=== PATIENT | male | born 1985 | race Two or more races ===

== ENCOUNTER → 2017-11-29 | Outpatient (CLI) | payer OTHER | END | disposition home or self-care (01) | LOC: LAB 11:25 | PROVIDERS: ATTEND Preventive Medicine Preventive Medicine/Occupational Environmental Medicine | DX: Z02.1 Encounter for pre-employment examination (principal) | CPT/HCPCS: 36415; 86706; 86735; 86762; 86765 ==

== ENCOUNTER 2018-04-21 00:51 | Emergency (ER) | payer OTHER ==
[~2018-04-21] VITALS: Ht 182.9 cm; Wt 113.4 kg
[2018-04-21] MEDS ORDERED: ONDANSETRON HCL 4 MG/2 ML VIAL IV ONE ×2 (02:00→04:00)
[2018-04-21] MEDS ORDERED: MORPHINE SULFATE 4 MG/ML SYR/VIAL IV ONE ×2 (02:00→04:00)
[2018-04-21 03:02] VITALS: BP 121/74
[2018-04-21 03:25] LABS: Urine Bacteria NONE SEEN /hpf (None Seen); Urine Blood Negative /uL (Negative); Urine Mucus FEW (None Seen); Urine Specific Gravity 1.022 (1.001-1.035); Urine WBC 2 /hpf (0 - 3)
[2018-04-21] MEDS ORDERED: ONDANSETRON HCL 4 MG/2 ML VIAL ONE (03:56)
[2018-04-21] MEDS ORDERED: MORPHINE SULFATE 4 MG/ML SYR/VIAL ONE (03:56)
== END 2018-04-21 04:30 | disposition home or self-care (01) ==
LOC: ER 00:52
DX: S33.5XXA Sprain of ligaments of lumbar spine, initial encounter (principal); M54.17 Radiculopathy, lumbosacral region; M47.897 Other spondylosis, lumbosacral region; Z88.2 Allergy status to sulfonamides; X58.XXXA Exposure to other specified factors, initial encounter; Y93.89 Activity, other specified; Y92.89 Other specified places as the place of occurrence of the external cause; Y99.8 Other external cause status
CPT/HCPCS: 72131; 81001; 96374; 96375; 96376; 99285; J2270; J2405

== ENCOUNTER 2018-04-26 12:26 | Inpatient (IN) | payer BC, OTHER ==
[2018-04-25 22:00] VITALS: BP 103/55
[~2018-04-26] VITALS: Ht 182.9 cm; Wt 119.8 kg
[2018-04-26] MEDS ORDERED: ONDANSETRON HCL 4 MG/2 ML VIAL IV ONE (12:30)
[2018-04-26] MEDS ORDERED: HYDROmorphone HCL 2 MG/ML VL IV ONE (12:30)
[2018-04-26] MEDS ORDERED: traMADol HCL 50 MG TAB PO ONE (14:15)
[2018-04-26] MEDS ORDERED: CARISOPRODOL 350 MG TAB PO ONE (14:15)
[2018-04-26] MEDS ORDERED: DEXAMETHASONE SOD PHOS 4 MG/1ML SDV INJ IV ONE (15:30)
[2018-04-26 16:10] LABS: Basophils # (auto) 0 uL; Basophils % (auto) 0.5 % (0.0-2.0); Eosinophils # (auto) 0.1 uL; Eosinophils % (auto) 2.1 % (0.0-7.0); Hematocrit 48.7 % (41.0-53.0); Hemoglobin 16.6 g/dL (13.5-17.5); Lymphocytes # (auto) 2.1 uL; Lymphocytes % (auto) 54.5 % (10.0-50.0); Mean Corpuscular Hemoglobin 30.7 pg (28.0-32.0); Monocytes # (auto) 0.5 uL; Monocytes % (auto) 12.8 % (0.0-12.0); Neutrophils # (auto) 1.1 uL; Neutrophils % (auto) 30.1 % (37.0-80.0); Nucleated Red Blood Cells % 0.1 %; Platelet Count (auto) 216 10^3/uL (140-450); Red Cell Distribution Width 13.3 % (11.8-14.3); White Blood Cell 3.8 10^3/uL (4.4-10.8)
[2018-04-26 16:27] LABS: Albumin 4.2 g/dL (3.4-5.0); Calcium 9.4 mg/dL (8.5-10.1); Potassium 4.7 mmol/L (3.5-5.1)
[2018-04-26 16:29] LABS: Partial Thromboplastin Time 28.7 sec (23.78-33.04); Prothrombin Time 10.7 sec (9.27-12.13)
[2018-04-26 16:30] LABS: BUN/Creatinine Ratio 15.6; Bilirubin, Total 0.7 mg/dL (0.2-1.0); Total Protein 8.7 g/dL (6.4-8.2)
[2018-04-26] MEDS: CYCLOBENZAPRINE HCL 10 MG TAB PO PRN (16:50)
[2018-04-26] MEDS: HYDROcodone-ACET 5/325MG TAB PO PRN (16:50)
[2018-04-26] MEDS: KETOROLAC TROMETH 30 MG/ML 1ML VIAL IV SCH (17:58)
[2018-04-26] MEDS ORDERED: HYDR-4683 PO (20:05)
[2018-04-26] MEDS ORDERED: IBUP800T24 PO (20:05)
[2018-04-26] MEDS: DEXAMETHASONE 4 MG TAB PO SCH (21:47)
[2018-04-26 22:00] VITALS: BP 103/55
[2018-04-26] MEDS: HYDROmorphone HCL 2 MG/ML VL IV PRN (23:58)
[2018-04-27] MEDS: KETOROLAC TROMETH 30 MG/ML 1ML VIAL IV SCH ×4 (00:47→18:27)
[2018-04-27 01:49] LABS: Urine Bacteria NONE SEEN /hpf (None Seen); Urine Blood Negative /uL (Negative); Urine Mucus FEW (None Seen); Urine Specific Gravity 1.029 (1.001-1.035); Urine WBC 1 /hpf (0 - 3)
[2018-04-27] MEDS: HYDROmorphone HCL 2 MG/ML VL IV PRN ×4 (04:39→22:45)
[2018-04-27 05:20] VITALS: BP 119/77
[2018-04-27 08:00] VITALS: BP 112/60
[2018-04-27 09:00] VITALS: BP 112/60
[2018-04-27] MEDS: DEXAMETHASONE 4 MG TAB PO SCH ×2 (09:42→22:50)
[2018-04-27] MEDS: HYDROcodone-ACET 5/325MG TAB PO PRN ×2 (09:42→19:56)
[2018-04-27 13:00] VITALS: BP 118/69
[2018-04-27] MEDS: GABAPENTIN 300 MG CAP PO SCH ×2 (14:45→22:50)
[2018-04-27] MEDS: DOCUSATE SOD 100 MG CAP PO SCH ×2 (16:35→22:51)
[2018-04-27 17:00] VITALS: BP 130/71
[2018-04-27] MEDS: CYCLOBENZAPRINE HCL 10 MG TAB PO PRN (19:56)
[2018-04-27 22:00] VITALS: BP 124/53
[2018-04-28] MEDS: HYDROcodone-ACET 5/325MG TAB PO PRN ×3 (01:58→21:08)
[2018-04-28] MEDS: HYDROmorphone HCL 2 MG/ML VL IV PRN ×5 (03:57→22:50)
[2018-04-28] MEDS: GABAPENTIN 300 MG CAP PO SCH (05:46)
[2018-04-28 05:51] VITALS: BP 101/49
[2018-04-28 08:24] VITALS: BP 104/50
[2018-04-28] MEDS: DEXAMETHASONE 4 MG TAB PO SCH ×2 (10:56→21:07)
[2018-04-28] MEDS: DOCUSATE SOD 100 MG CAP PO SCH ×2 (10:56→21:07)
[2018-04-28 11:41] VITALS: BP 115/59
[2018-04-28] MEDS ORDERED: LIDOCAINE 5% TOPICAL PATCH TOP ONE (14:15)
[2018-04-28 16:09] VITALS: BP 121/72
[2018-04-28] MEDS ORDERED: NEOMYCIN-BACITRACIN-POLYM 15GM TOP OINT TOP ONE (16:57)
[2018-04-28] MEDS ORDERED: BUPIVACAINE 0.25% INJ 50ML VIAL ONE (17:23)
[2018-04-28] MEDS ORDERED: TRIAMCINOLONE 40MG/ML 1ML VIAL ONE ×2 (18:58→19:47)
[2018-04-28] MEDS ORDERED: fentaNYL CITRATE 100 MCG/2 ML VL ONE (19:45)
[2018-04-28] MEDS ORDERED: MIDAZOLAM HCL 1MG/1ML-2 ML VIAL ONE (19:46)
[2018-04-28] MEDS ORDERED: HYDROmorphone HCL 2 MG/ML VL ONE (20:11)
[2018-04-28] MEDS ORDERED: ONDANSETRON HCL 4 MG/2 ML VIAL IV ONE (20:15)
[2018-04-28] MEDS ORDERED: hydrALAZINE HCL 20 MG/ML VL IV PRN (20:15)
[2018-04-28] MEDS ORDERED: HYDROmorphone HCL 2 MG/ML VL IV PRN (20:15)
[2018-04-28] MEDS ORDERED: ePHEDrine SULFATE 50 MG/ML AMP IV PRN (20:15)
[2018-04-28 21:22] VITALS: BP 137/83
[2018-04-28] MEDS: CYCLOBENZAPRINE HCL 10 MG TAB PO PRN (23:43)
[2018-04-29] MEDS: HYDROmorphone HCL 2 MG/ML VL IV PRN ×5 (03:44→23:53)
[2018-04-29 04:57] VITALS: BP 127/93
[2018-04-29 06:07] LABS: Albumin 3.3 g/dL (3.4-5.0); BUN/Creatinine Ratio 21.2; Calcium 8.4 mg/dL (8.5-10.1); Potassium 4.3 mmol/L (3.5-5.1)
[2018-04-29 06:10] LABS: Bilirubin, Total 0.2 mg/dL (0.2-1.0); Total Protein 7.1 g/dL (6.4-8.2)
[2018-04-29 08:00] VITALS: BP 107/50
[2018-04-29 09:00] VITALS: BP 107/50
[2018-04-29] MEDS: DEXAMETHASONE 4 MG TAB PO SCH ×2 (10:24→21:14)
[2018-04-29] MEDS: HYDROcodone-ACET 5/325MG TAB PO PRN (10:24)
[2018-04-29] MEDS: DOCUSATE SOD 100 MG CAP PO SCH ×2 (10:24→21:14)
[2018-04-29] MEDS: LIDOCAINE 5% TOPICAL PATCH TOP SCH (10:25)
[2018-04-29] MEDS ORDERED: PANTOPRAZOLE 40 MG TAB PO ONE (11:15)
[2018-04-29] MEDS: KETOROLAC TROMETH 30 MG/ML 1ML VIAL IV PRN ×2 (12:16→21:14)
[2018-04-29 15:45] VITALS: BP 137/88
[2018-04-29 22:00] VITALS: BP 127/64
[2018-04-30] MEDS: KETOROLAC TROMETH 30 MG/ML 1ML VIAL IV PRN ×3 (03:38→19:59)
[2018-04-30 05:00] VITALS: BP 122/67
[2018-04-30] MEDS: HYDROmorphone HCL 2 MG/ML VL IV PRN ×5 (05:01→21:21)
[2018-04-30 09:00] VITALS: BP 127/67
[2018-04-30] MEDS: LIDOCAINE 5% TOPICAL PATCH TOP SCH (10:21)
[2018-04-30] MEDS: DOCUSATE SOD 100 MG CAP PO SCH ×2 (10:22→21:21)
[2018-04-30] MEDS: PANTOPRAZOLE 40 MG TAB PO SCH (10:23)
[2018-04-30] MEDS: DEXAMETHASONE 4 MG TAB PO SCH ×2 (10:23→21:21)
[2018-04-30 17:30] VITALS: BP 139/63
[2018-04-30 21:33] VITALS: BP 134/66
[2018-05-01] MEDS: HYDROmorphone HCL 2 MG/ML VL IV PRN ×5 (01:24→19:52)
[2018-05-01 05:00] VITALS: BP 119/55
[2018-05-01 09:15] VITALS: BP 116/73
[2018-05-01] MEDS: DOCUSATE SOD 100 MG CAP PO SCH ×2 (10:29→21:28)
[2018-05-01] MEDS: DEXAMETHASONE 4 MG TAB PO SCH ×2 (10:29→21:28)
[2018-05-01] MEDS: LIDOCAINE 5% TOPICAL PATCH TOP SCH (10:30)
[2018-05-01] MEDS: PANTOPRAZOLE 40 MG TAB PO SCH (10:30)
[2018-05-01] MEDS: KETOROLAC TROMETH 30 MG/ML 1ML VIAL IV PRN (10:42)
[2018-05-01 14:09] VITALS: BP 125/68
[2018-05-01 17:07] VITALS: BP 119/64
[2018-05-01 21:42] VITALS: BP 134/72
[2018-05-02] MEDS: HYDROmorphone HCL 2 MG/ML VL IV PRN ×6 (00:05→20:59)
[2018-05-02 05:10] VITALS: BP 115/52
[2018-05-02 08:00] VITALS: BP 108/60
[2018-05-02 09:06] VITALS: BP 108/60
[2018-05-02] MEDS: LIDOCAINE 5% TOPICAL PATCH TOP SCH (10:10)
[2018-05-02] MEDS: PANTOPRAZOLE 40 MG TAB PO SCH (10:11)
[2018-05-02] MEDS: KETOROLAC TROMETH 30 MG/ML 1ML VIAL IV PRN ×2 (10:11→18:07)
[2018-05-02] MEDS: DOCUSATE SOD 100 MG CAP PO SCH ×2 (10:11→22:58)
[2018-05-02] MEDS: DEXAMETHASONE 4 MG TAB PO SCH (10:11)
[2018-05-02] MEDS ORDERED: MORPHINE SULF 15mg ER tab PO ONE (12:15)
[2018-05-02 13:23] VITALS: BP 123/63
[2018-05-02 17:19] VITALS: BP 118/65
[2018-05-02] MEDS: HYDROcodone-ACET 5/325MG TAB PO PRN (20:13)
[2018-05-02 21:48] VITALS: BP 128/66
[2018-05-02] MEDS: MORPHINE SULF 15mg ER tab PO SCH (22:58)
[2018-05-03] MEDS: HYDROmorphone HCL 2 MG/ML VL IV PRN ×3 (04:01→12:20)
[2018-05-03 05:00] VITALS: BP 124/56
[2018-05-03] MEDS: PANTOPRAZOLE 40 MG TAB PO SCH (08:11)
[2018-05-03] MEDS: LIDOCAINE 5% TOPICAL PATCH TOP SCH (08:11)
[2018-05-03] MEDS: DOCUSATE SOD 100 MG CAP PO SCH (08:11)
[2018-05-03 09:00] VITALS: BP 122/57
[2018-05-03] MEDS: MORPHINE SULF 15mg ER tab PO SCH (09:42)
[2018-05-03] MEDS: KETOROLAC TROMETH 30 MG/ML 1ML VIAL IV PRN (09:43)
[2018-05-03] MEDS ORDERED: DEXAMETHASONE 4 MG TAB PO SCH (10:00)
[2018-05-03 12:24] VITALS: BP 120/64
[2018-05-03 13:45] VITALS: BP 120/64
[2018-05-03] MEDS: HYDROcodone-ACET 5/325MG TAB PO PRN (14:23)
== END 2018-05-03 16:51 | disposition home or self-care (01) | DRG 552 ==
LOC: ER 12:28 → OVERFLOW 15:18 → WEST WING 19:49
PROVIDERS: ADMIT Psychiatry & Neurology Psychiatry; ATTEND Internal Medicine
PROC: 3E0S33Z Introduction of Anti-inflammatory into Epidural Space, Percutaneous Approach (ICD-10-PCS; principal; 2018-04-28 19:40)
DX: M54.16 Radiculopathy, lumbar region (principal); M16.12 Unilateral primary osteoarthritis, left hip; E66.01 Morbid (severe) obesity due to excess calories; G89.29 Other chronic pain; R79.89 Other specified abnormal findings of blood chemistry; Z88.2 Allergy status to sulfonamides; Z68.35 Body mass index [BMI] 35.0-35.9, adult
CPT/HCPCS: 36415; 72100; 72192; 76000; 80053; 81001; 85025; 85610; 85652; 85730; 96374; 96375; 97110; 97116; 97530; A6257; G0378; J1100; J1885; J2250; J2405; J3490

== ENCOUNTER → 2018-05-23 | Outpatient (CLI) | payer BC ==
[~2018-05-23] MED LIST: HYDR-4683 PO; IBUP800T24 PO
[2018-05-23 14:52] LABS: Urine WBC None Seen /hpf (0 - 3)
[2018-05-23 15:14] LABS: Albumin 3.7 g/dL (3.4-5.0); Potassium 4.1 mmol/L (3.5-5.1); Urine Bacteria NONE SEEN /hpf (None Seen); Urine Blood TRACE /uL (Negative); Urine Specific Gravity 1.021 (1.001-1.035)
[2018-05-23 15:21] LABS: BUN/Creatinine Ratio 22.8; Bilirubin, Total 0.9 mg/dL (0.2-1.0)
[2018-05-23 15:22] LABS: INR 0.93 (0.9-1.15); Partial Thromboplastin Time 26.9 sec (23.78-33.04)
[2018-05-23 16:58] LABS: Basophils # (auto) 0 uL; Basophils % (auto) 0.3 % (0.0-2.0); Eosinophils # (auto) 0 uL; Eosinophils % (auto) 1.1 % (0.0-7.0); Hematocrit 44.5 % (41.0-53.0); Hemoglobin 14.8 g/dL (13.5-17.5); Lymphocytes # (auto) 1.4 uL; Mean Corpuscular Hemoglobin 30.6 pg (28.0-32.0); Mean Corpuscular Hgb Conc. 33.3 g/dL (32.0-36.0); Mean Corpuscular Volume 91.9 fL (80.0-100.0); Monocytes # (auto) 0.3 uL; Monocytes % (auto) 8.1 % (0.0-12.0); Neutrophils # (auto) 2.2 uL; Neutrophils % (auto) 54.5 % (37.0-80.0); Nucleated Red Blood Cells % 0.1 %; Platelet Count (auto) 180 10^3/uL (140-450); Red Blood Cells 4.84 10^6/uL (4.5-5.90); Red Cell Distribution Width 14.2 % (11.8-14.3)
== END | disposition home or self-care (01) ==
LOC: LAB 14:19
PROVIDERS: ATTEND Internal Medicine
DX: Z01.810 Encounter for preprocedural cardiovascular examination (principal)
CPT/HCPCS: 36415; 80053; 81001; 85025; 85610; 85730

== ENCOUNTER → 2018-08-03 | Outpatient (CLI) | payer BC ==
[2018-08-03 16:19] LABS: Calcium 8.7 mg/dL (8.5-10.1); Potassium 4.2 mmol/L (3.5-5.1)
[2018-08-03 16:25] LABS: Albumin 3.7 g/dL (3.4-5.0); BUN/Creatinine Ratio 15.1; Bilirubin, Total 0.6 mg/dL (0.2-1.0)
[2018-08-03 16:28] LABS: Basophils # (auto) 0 uL; Basophils % (auto) 0.4 % (0.0-2.0); Eosinophils # (auto) 0.1 uL; Eosinophils % (auto) 2.1 % (0.0-7.0); Hematocrit 45.8 % (41.0-53.0); Hemoglobin 15.2 g/dL (13.5-17.5); Lymphocytes # (auto) 1.5 uL; Lymphocytes % (auto) 38.9 % (10.0-50.0); Mean Corpuscular Hemoglobin 30.3 pg (28.0-32.0); Mean Corpuscular Hgb Conc. 33.2 g/dL (32.0-36.0); Mean Corpuscular Volume 91.3 fL (80.0-100.0); Monocytes # (auto) 0.4 uL; Monocytes % (auto) 9.5 % (0.0-12.0); Neutrophils % (auto) 49.1 % (37.0-80.0); Nucleated Red Blood Cells % 0.1 %; Platelet Count (auto) 208 10^3/uL (140-450); Red Blood Cells 5.02 10^6/uL (4.5-5.90); Red Cell Distribution Width 13.6 % (11.8-14.3)
[2018-08-03 17:04] LABS: INR 0.94 (0.9-1.15); Partial Thromboplastin Time 26.1 sec (23.78-33.04); Prothrombin Time 10.1 sec (9.27-12.13)
== END | disposition home or self-care (01) ==
LOC: LAB 15:45
PROVIDERS: ATTEND Internal Medicine
DX: Z01.810 Encounter for preprocedural cardiovascular examination (principal)
CPT/HCPCS: 36415; 80053; 83036; 85025; 85610; 85730

== ENCOUNTER 2018-08-29 08:57 | Inpatient (IN) | payer BC ==
[2018-08-23 09:40] LABS: Basophils # (auto) 0 uL; Basophils % (auto) 0.6 % (0.0-2.0); Eosinophils # (auto) 0.1 uL; Eosinophils % (auto) 2.5 % (0.0-7.0); Hematocrit 42.7 % (41.0-53.0); Hemoglobin 14.4 g/dL (13.5-17.5); Lymphocytes % (auto) 50.6 % (10.0-50.0); Mean Corpuscular Hemoglobin 30.5 pg (28.0-32.0); Mean Corpuscular Hgb Conc. 33.6 g/dL (32.0-36.0); Mean Corpuscular Volume 90.9 fL (80.0-100.0); Monocytes # (auto) 0.4 uL; Monocytes % (auto) 10.5 % (0.0-12.0); Neutrophils # (auto) 1.5 uL; Neutrophils % (auto) 35.8 % (37.0-80.0); Nucleated Red Blood Cells % 0.3 %; Platelet Count (auto) 201 10^3/uL (140-450); Red Cell Distribution Width 12.8 % (11.8-14.3)
[2018-08-23 09:45] LABS: Urine Bacteria NONE SEEN /hpf (None Seen); Urine Blood Negative /uL (Negative); Urine Mucus FEW (None Seen); Urine Specific Gravity 1.012 (1.001-1.035); Urine WBC 1 /hpf (0 - 3)
[2018-08-23 09:55] LABS: INR 0.98 (0.9-1.15); Prothrombin Time 10.5 sec (9.27-12.13)
[2018-08-23 10:04] LABS: Albumin 3.7 g/dL (3.4-5.0); Potassium 3.8 mmol/L (3.5-5.1)
[2018-08-23 10:08] LABS: BUN/Creatinine Ratio 10.2; Bilirubin, Total 0.7 mg/dL (0.2-1.0)
[~2018-08-29] VITALS: Ht 182.9 cm; Wt 138.0 kg
[~2018-08-29 08:57] MED LIST changes: -HYDR-4683 PO
[2018-08-29] MEDS ORDERED: ceFAZolin 1GM/50ML 100 ML IV ONE (09:23)
[2018-08-29] MEDS ORDERED: BUPIVACAINE W/ EPINEPH 0.25% INJ 50ML MDV ONE (10:49)
[2018-08-29] MEDS ORDERED: TRANEXAMIC ACID 20 ML ONE (10:49)
[2018-08-29] MEDS ORDERED: VANCOMYCIN HCL 1000 MG VL ONE ×2 (10:50→15:04)
[2018-08-29] MEDS ORDERED: MORPHINE SULF(PF) 0.5MG/ML 10ML VIAL ONE (10:52)
[2018-08-29] MEDS ORDERED: KETOROLAC TROMETH 30 MG/ML 1ML VIAL ONE (10:53)
[2018-08-29] MEDS ORDERED: fentaNYL CITRATE 100 MCG/2 ML VL ONE (10:55)
[2018-08-29] MEDS ORDERED: MIDAZOLAM HCL 1MG/1ML-2 ML VIAL ONE (10:55)
[2018-08-29] MEDS ORDERED: HYDROmorphone HCL 2 MG/ML VL ONE (10:55)
[2018-08-29] MEDS ORDERED: fentaNYL CITRATE 5 ML ONE (10:55)
[2018-08-29] MEDS ORDERED: SUCCINYLCHOLINE CHLORIDE 20 MG/ML 10ML VIAL IV ONE (11:28)
[2018-08-29] MEDS ORDERED: DEXAMETHASONE SOD PHOS 10MG/1ML VIAL INJ ONE (11:46)
[2018-08-29] MEDS ORDERED: PHENYLEPHRINE HCL 10 MG/ML VL ONE (11:57)
[2018-08-29] MEDS ORDERED: PROPOFOL 10 MG/ML 20 ML IV ONE (11:57)
[2018-08-29 14:24] LABS: Basophils # (auto) 0.1 uL; Basophils % (auto) 0.5 % (0.0-2.0); Eosinophils # (auto) 0 uL; Eosinophils % (auto) 0.3 % (0.0-7.0); Hematocrit 38.6 % (41.0-53.0); Hemoglobin 12.4 g/dL (13.5-17.5); Lymphocytes # (auto) 2.4 uL; Lymphocytes % (auto) 18.2 % (10.0-50.0); Mean Corpuscular Hemoglobin 29.6 pg (28.0-32.0); Mean Corpuscular Hgb Conc. 32.2 g/dL (32.0-36.0); Mean Corpuscular Volume 91.9 fL (80.0-100.0); Monocytes # (auto) 0.1 uL; Monocytes % (auto) 1.1 % (0.0-12.0); Neutrophils # (auto) 10.6 uL; Neutrophils % (auto) 79.9 % (37.0-80.0); Nucleated Red Blood Cells % 0.1 %; Platelet Count (auto) 205 10^3/uL (140-450); White Blood Cell 13.2 10^3/uL (4.4-10.8)
[2018-08-29] MEDS ORDERED: MIDAZOLAM HCL 1MG/1ML-2 ML VIAL IV PRN (14:30)
[2018-08-29] MEDS ORDERED: KETOROLAC TROMETH 30 MG/ML 1ML VIAL IV ONE (14:30)
[2018-08-29] MEDS ORDERED: ONDANSETRON HCL 4 MG/2 ML VIAL IV ONE (14:30)
[2018-08-29] MEDS ORDERED: LABETALOL HCL 5 MG/ML 4ML SYRINGE IV PRN (14:30)
[2018-08-29] MEDS ORDERED: ePHEDrine SULFATE 50 MG/ML AMP IV PRN (14:30)
[2018-08-29] MEDS ORDERED: MORPHINE SULFATE 4 MG/ML SYR/VIAL IV PRN (14:30)
[2018-08-29] MEDS ORDERED: MORPHINE SULF INJ 2 MG/ML SYRINGE 1ML IV ONE (16:00)
[2018-08-29] MEDS ORDERED: NITROGLYCERIN 0.4 MG SL TAB SL PRN (16:30)
[2018-08-29] MEDS ORDERED: MORPHINE SULF INJ 2 MG/ML SYRINGE 1ML IV PRN (16:30)
[2018-08-29] MEDS ORDERED: OXYCODONE W/ ACETAMINOPHEN 5/325MG TABLET PO PRN (16:30)
[2018-08-29] MEDS: HYDROmorphone HCL 2 MG/ML VL IV PRN ×5 (17:04→21:04)
--- NOTE | 2018-08-29 20:01 | NUR ---
DRESSING TO LEFT HIP CLEAN DRY AND INTACT.
[2018-08-29 20:52] LABS: Hematocrit 37.2 % (41.0-53.0); Hemoglobin 12.2 g/dL (13.5-17.5)
[2018-08-29 21:00] VITALS: BP 113/60
--- NOTE | 2018-08-29 21:00 | NUR ---
OPENING NOTE RECEIVED PATIENT FROM PACU. PATIENT IS A&OX4. NO S/S OF DISTRESS. CALL LIGHT IN REACH, BED IS AT LOWEST POSITION.
[2018-08-29 22:00] VITALS: BP 113/60
[2018-08-29] MEDS: DOCUSATE SOD 100 MG CAP PO SCH (23:06)
[2018-08-29] MEDS: ceFAZolin 1GM 2 GM in D5W 5% 100 ML IV SCH (23:07)
[2018-08-29] MEDS: oxyCODONE ER 10 MG TAB PO SCH (23:07)
[2018-08-30] MEDS: HYDROmorphone HCL 2 MG/ML VL IV PRN ×8 (01:20→23:19)
[2018-08-30 05:08] VITALS: BP 107/77
--- NOTE | 2018-08-30 05:13 | NUR ---
Barroso catheter dc'd Order to discontinue barroso catheter. Barroso dc'd with clean technique following deflation of balloon. Patient tolerated well with no complaints of pain.
--- NOTE | 2018-08-30 05:14 | NUR ---
IV removal IV DC'd with clean sterile technique, catheter fully intact. Pressure dressing applied to site. Patient tolerated well.
[2018-08-30] MEDS: ceFAZolin 1GM 2 GM in D5W 5% 100 ML IV SCH ×2 (06:13→16:03)
[2018-08-30 06:29] LABS: Hemoglobin 10.4 g/dL (13.5-17.5)
[2018-08-30 06:39] LABS: Calcium 7.5 mg/dL (8.5-10.1); Potassium 4.2 mmol/L (3.5-5.1)
[2018-08-30 06:44] LABS: Albumin 2.5 g/dL (3.4-5.0); BUN/Creatinine Ratio 14.4; Bilirubin, Total 0.4 mg/dL (0.2-1.0); Total Protein 5.3 g/dL (6.4-8.2)
--- NOTE | 2018-08-30 07:30 | NUR ---
Open Shift Note Received report on patient, awake and lying in bed. Patient states pain 7/10. Discussed POC and pain management with patient, verbalized understanding. Bed in lowest locked position, side rails up x2, and call light within reach. Will continue to monitor.
--- NOTE | 2018-08-30 07:46 | NUR ---
Closing note Endorsed care to day shift RN. patient shows no s/s of distress.
[2018-08-30] MEDS: LACTATED RINGER'S 1,000 ML IV SCH ×3 (07:59→22:22)
[2018-08-30 08:00] VITALS: BP 112/72
--- NOTE | 2018-08-30 09:21 | NUR ---
Physical Therapy at Bedside Physical therapy at patient bedside helping patient to use crutches.
[2018-08-30] MEDS: DOCUSATE SOD 100 MG CAP PO SCH ×2 (10:06→21:29)
[2018-08-30] MEDS: oxyCODONE ER 10 MG TAB PO SCH (10:07)
[2018-08-30] MEDS: ENOXAPARIN SOD 40 MG/0.4 ML SYRINGE SC SCH (10:07)
--- NOTE | 2018-08-30 11:22 | NUR ---
Paged Dr Heck Paged Dr Heck from ortho adjust pain medication regiment. New orders to follow.
[2018-08-30 13:00] VITALS: BP 104/41
--- NOTE | 2018-08-30 16:00 | NUR ---
Fever Patient has fever of 100.4. PRN Tylenol given. Will continue to monitor.
[2018-08-30] MEDS: ACETAMINOPHEN 325 MG TAB PO PRN ×2 (16:04→22:17)
[2018-08-30 17:25] VITALS: BP 126/81
--- NOTE | 2018-08-30 18:00 | NUR ---
Paged Dr Rodriguez Paged Dr Rodriguez to inform him that patient still has fever after PRN Tylenol was given. stated to continue nursing care of ice packs and no heavy blankets. Discussed with Dr Rodriguez that family member at bedside was requesting scan to determine if patient has a clot, stated it is not necessary at this time. Verbalized understanding, will continue to monitor.
[2018-08-30] MEDS: OXYCODONE W/ ACETAMINOPHEN 5/325MG TABLET PO PRN (18:20)
--- NOTE | 2018-08-30 18:45 | NUR ---
Fever Decreased Patient's fever now 99.7. Will continue to monitor.
--- NOTE | 2018-08-30 19:00 | NUR ---
Bladder Scan Performed bladder scan on patient because patient states they only peed "a little bit this morning". Patient has 350-400ml in bladder. Discussed with patient that if still having anuria after few more hours, an order for a barroso can be put into place. Patient verbalized understanding. Patient states no pain or urge to urinate.
--- NOTE | 2018-08-30 19:25 | NUR ---
End of Shift Endorsed care to [facility] nurse Joselito.
--- NOTE | 2018-08-30 19:25 | NUR ---
OPENING NOTES RECEIVED REPORT FROM DAY SHIFT NURSE KOBE. PT IS ALERT AND ORIENTATED X 4 WITH NO S/S OF DISTRESS NOR PAIN. WITH PILLOW BETWEEN THE LEGS. BED IS IN LOWEST POSITION WITH SIDE RAILS UP X 2. BED BRAKES ARE LOCKED AND CALL LIGHT IS WITH IN REACH. BED ALARM IS ACTIVATED. WILL MONITOR Q1 HR.
[2018-08-30] MEDS: oxyCODONE ER 20 MG TAB PO SCH (21:30)
[2018-08-30 22:00] VITALS: BP 123/45
[2018-08-30] MEDS ORDERED: IBUPROFEN 600 MG TAB PO ONE (23:00)
--- NOTE | 2018-08-31 01:29 | NUR ---
DIMITRIS ASSISTED PT WITH URINAL, 1100 OUTPUT. PT ALSO HAD TEMP 98.9 ORALLY.
[2018-08-31 05:00] VITALS: BP 129/70
--- NOTE | 2018-08-31 06:44 | NUR ---
ORDERS NEW ORDERS FROM TOMASZ, GIVE INCENTIVE SPIROMETER TO PATIENT. PT EDUCATED ON IS AND PT RETURNED DEMONSTRATED.
[2018-08-31] MEDS: ONDANSETRON HCL 4 MG/2 ML VIAL IV PRN ×3 (07:58→23:36)
[2018-08-31] MEDS: HYDROmorphone HCL 2 MG/ML VL IV PRN ×4 (07:58→23:36)
--- NOTE | 2018-08-31 08:05 | NUR ---
PT HAS FEVER 102.2, TYLENOL 650MG PO PRN GIVEN ORDER. WILL CONTINUE TO MONITOR.
[2018-08-31] MEDS: ACETAMINOPHEN 325 MG TAB PO PRN ×3 (08:16→21:06)
[2018-08-31 08:19] VITALS: BP 132/68
[2018-08-31 08:32] LABS: Basophils # (auto) 0 uL; Basophils % (auto) 0.3 % (0.0-2.0); Eosinophils # (auto) 0 uL; Eosinophils % (auto) 0.1 % (0.0-7.0); Hematocrit 26.7 % (41.0-53.0); Hemoglobin 9.3 g/dL (13.5-17.5); Lymphocytes # (auto) 0.9 uL; Lymphocytes % (auto) 16.9 % (10.0-50.0); Mean Corpuscular Hemoglobin 31.1 pg (28.0-32.0); Mean Corpuscular Hgb Conc. 34.7 g/dL (32.0-36.0); Mean Corpuscular Volume 89.6 fL (80.0-100.0); Monocytes # (auto) 0.7 uL; Monocytes % (auto) 13.6 % (0.0-12.0); Neutrophils # (auto) 3.8 uL; Neutrophils % (auto) 69.1 % (37.0-80.0); Nucleated Red Blood Cells % 0.1 %; Platelet Count (auto) 99 10^3/uL (140-450); Red Blood Cells 2.98 10^6/uL (4.5-5.90); Red Cell Distribution Width 13.1 % (11.8-14.3); White Blood Cell 5.5 10^3/uL (4.4-10.8)
--- NOTE | 2018-08-31 09:15 | NUR ---
PT STILL HAS FEVER 102.0. COOLING MEASURE INITIATED. WILL CONTINUE TO MONITOR.
[2018-08-31] MEDS: LACTATED RINGER'S 1,000 ML IV SCH ×4 (10:17→23:27)
[2018-08-31] MEDS: ENOXAPARIN SOD 40 MG/0.4 ML SYRINGE SC SCH (10:19)
[2018-08-31] MEDS: oxyCODONE ER 20 MG TAB PO SCH ×3 (10:19→21:26)
[2018-08-31] MEDS: DOCUSATE SOD 100 MG CAP PO SCH ×3 (10:19→21:26)
[2018-08-31 12:05] VITALS: BP 104/52
--- NOTE | 2018-08-31 14:57 | NUR ---
PT HAS FEVER 103.0. TYLENOL 650MG PO GIVEN ORDER. DR. TIPTON NOTIFIED. STATED WILL COME TO SEE PT.
--- NOTE | 2018-08-31 15:15 | NUR ---
DR. TIPTON AT BEDSIDE. NEW ORDERS IV ABX ZOSYN, CBC, CMP, CREATINE KINASE, UA, BLOOD CULTURE, CHEST PORTABLE. POC DISCUSSED WITH PT.
--- NOTE | 2018-08-31 16:00 | NUR ---
PT TEMPERATURE 99.0.
[2018-08-31 16:47] VITALS: BP 113/61
[2018-08-31] MEDS: PIPERACILLIN-TAZOB 3.375GM 100 ML IV SCH ×2 (17:05→23:36)
[2018-08-31 18:31] LABS: Calcium 7.5 mg/dL (8.5-10.1); Potassium 3.4 mmol/L (3.5-5.1)
[2018-08-31 18:34] LABS: Albumin 2.2 g/dL (3.4-5.0); BUN/Creatinine Ratio 4.9
[2018-08-31 18:40] LABS: Bilirubin, Total 0.5 mg/dL (0.2-1.0); Total Protein 5.5 g/dL (6.4-8.2)
--- NOTE | 2018-08-31 18:45 | NUR ---
PT RESTING IN BED, FAMILY AT BEDSIDE. NO S/S OF ACUTE DISTRESS. DRESSING TO LEFT HIP CLEAN/DRY/INTACT NO BLEEDING NOTED. VS: 98.8, 128, 18. 118/60, 98% ON RA, 08/21. WILL CONTINUE TO MONITOR.
--- NOTE | 2018-08-31 18:58 | NUR ---
CARE ENDORSED TO ANIBAL HERNÁNDEZ.
[2018-08-31 19:38] LABS: Urine Bacteria NONE SEEN /hpf (None Seen); Urine Blood TRACE /uL (Negative); Urine Specific Gravity 1.006 (1.001-1.035); Urine WBC <1 /hpf (0 - 3)
--- NOTE | 2018-08-31 19:40 | NUR ---
OPENING NOTES RECEIVED REPORT FROM DAY SHIFT NURSE VAN. PT IS ALERT AND ORIENTATED X 4 WITH NO S/S OF DISTRESS BUT 7/10 PAIN. PT'S TEMP: 102. REMOVED SHEETS FROM PT AND COOLING MEASURES TAKEN. BED IS IN LOWEST POSITION WITH SIDE RAILS UP X 2. BED BRAKES ARE LOCKED AND CALL LIGHT IS WITH IN REACH. BED ALARM IS ACTIVATED. WILL MONITOR Q1 HR.
[2018-08-31] MEDS: OXYCODONE W/ ACETAMINOPHEN 5/325MG TABLET PO PRN (19:57)
--- NOTE | 2018-08-31 23:41 | NUR ---
ROUND ROUND ON PT, CLAIMS TO FEEL "THE FEVER HAS BROKEN." PT NO LONGER GRIMACING, TEMP TAKEN 99.6 F
[2018-09-01] MEDS: HYDROmorphone HCL 2 MG/ML VL IV PRN ×6 (03:13→23:48)
[2018-09-01 05:00] VITALS: BP 121/70
[2018-09-01] MEDS: PIPERACILLIN-TAZOB 3.375GM 100 ML IV SCH (05:27)
[2018-09-01 06:38] LABS: Basophils # (auto) 0 uL; Basophils % (auto) 0.3 % (0.0-2.0); Eosinophils # (auto) 0 uL; Hematocrit 26.2 % (41.0-53.0); Hemoglobin 8.9 g/dL (13.5-17.5); Lymphocytes # (auto) 1.2 uL; Lymphocytes % (auto) 18.4 % (10.0-50.0); Mean Corpuscular Hemoglobin 30.7 pg (28.0-32.0); Mean Corpuscular Volume 90.4 fL (80.0-100.0); Monocytes # (auto) 0.9 uL; Monocytes % (auto) 14.7 % (0.0-12.0); Neutrophils # (auto) 4.2 uL; Neutrophils % (auto) 66.6 % (37.0-80.0); Platelet Count (auto) 120 10^3/uL (140-450); Red Cell Distribution Width 12.6 % (11.8-14.3); White Blood Cell 6.3 10^3/uL (4.4-10.8)
[2018-09-01] MEDS: LACTATED RINGER'S 1,000 ML IV SCH ×3 (06:40→23:00)
[2018-09-01 06:58] LABS: Albumin 2.1 g/dL (3.4-5.0); BUN/Creatinine Ratio 5.1; Calcium 7.7 mg/dL (8.5-10.1); Potassium 3.7 mmol/L (3.5-5.1)
[2018-09-01 07:01] LABS: Bilirubin, Total 0.6 mg/dL (0.2-1.0); Total Protein 5.7 g/dL (6.4-8.2)
[2018-09-01] MEDS: ACETAMINOPHEN 325 MG TAB PO PRN (07:26)
--- NOTE | 2018-09-01 07:28 | NUR ---
CLOSING NOTES ENDORSED CARE TO DAY SHIFT RN
[2018-09-01 08:00] VITALS: BP 105/56
--- NOTE | 2018-09-01 08:30 | NUR ---
DRESSINGS TO LEFT HIP NOTED SOAKING WET. DRESSING CHANGE DONE, PT TOLERATED WELL. SIVAKUMAR INTACT. VS: 98.5, 122, 18, 105/56, 98% ON RA. WILL CONTINUE CARE.
[2018-09-01] MEDS: oxyCODONE ER 20 MG TAB PO SCH ×2 (09:04→22:21)
[2018-09-01 09:05] VITALS: BP 105/56
[2018-09-01] MEDS: ENOXAPARIN SOD 40 MG/0.4 ML SYRINGE SC SCH (09:05)
[2018-09-01] MEDS: DOCUSATE SOD 100 MG CAP PO SCH ×2 (09:05→22:20)
[2018-09-01] MEDS: ONDANSETRON HCL 4 MG/2 ML VIAL IV PRN ×3 (09:34→18:14)
--- NOTE | 2018-09-01 10:50 | NUR ---
DR. TIPTON AT BEDSIDE.
[2018-09-01 12:34] VITALS: BP 110/63
[2018-09-01] MEDS ORDERED: ceFAZolin 1GM/50ML 50 ML IV SCH (14:00)
[2018-09-01 16:56] VITALS: BP 115/71
--- NOTE | 2018-09-01 17:25 | NUR ---
DR. TOLBERT AT BEDSIDE. NEW ORDER STOP LOVENOX, START ASPIRIN 325MG BID, INCREASE CEFAZOLIN TO 2MG, NUTRITIONAL SUPPLEMENT 240ML TID.
[2018-09-01] MEDS: Ensure HIGH Protein Chocolate 8oz Bottle PO SCH (18:07)
--- NOTE | 2018-09-01 19:05 | NUR ---
CARE ENDORSED TO ANIBAL HERNÁNDEZ.
--- NOTE | 2018-09-01 19:30 | NUR ---
OPENING NOTES RECEIVED REPORT FROM DAY SHIFT NURSE VAN. PT IS ALERT AND ORIENTATED X 4 WITH NO S/S OF DISTRESS BUT 7/10 PAIN. PT'S TEMP: 98.9. BED IS IN LOWEST POSITION WITH SIDE RAILS UP X 2. BED BRAKES ARE LOCKED AND CALL LIGHT IS WITH IN REACH. WILL MONITOR Q1 HR.
[2018-09-01 22:00] VITALS: BP 105/63
[2018-09-01] MEDS: ceFAZolin 1GM 2 GM in D5W 5% 100 ML IV SCH (22:20)
[2018-09-01] MEDS: ASPirin-EC 325mg tab PO SCH (22:21)
[2018-09-02] VITALS (7 sets, daily range): BP systolic 100–129; BP diastolic 52–74
[2018-09-02] MEDS: HYDROmorphone HCL 2 MG/ML VL IV PRN ×7 (02:43→22:55)
[2018-09-02] MEDS: ACETAMINOPHEN 325 MG TAB PO PRN (05:52)
[2018-09-02] MEDS: ceFAZolin 1GM 2 GM in D5W 5% 100 ML IV SCH ×3 (05:53→21:54)
[2018-09-02 06:42] LABS: Basophils # (auto) 0 uL; Eosinophils # (auto) 0.1 uL; Hematocrit 22.6 % (41.0-53.0); Hemoglobin 7.8 g/dL (13.5-17.5); Lymphocytes # (auto) 1.3 uL; Monocytes # (auto) 0.7 uL; White Blood Cell 5.1 10^3/uL (4.4-10.8)
[2018-09-02 06:46] LABS: BUN/Creatinine Ratio 5.9; Calcium 7.5 mg/dL (8.5-10.1); Potassium 3.5 mmol/L (3.5-5.1)
[2018-09-02 06:54] LABS: Basophils % (auto) 0.3 % (0.0-2.0); Eosinophils % (auto) 1.7 % (0.0-7.0); Lymphocytes % (auto) 25.7 % (10.0-50.0); Mean Corpuscular Hemoglobin 31.1 pg (28.0-32.0); Mean Corpuscular Hgb Conc. 34.6 g/dL (32.0-36.0); Mean Corpuscular Volume 89.9 fL (80.0-100.0); Monocytes % (auto) 14.3 % (0.0-12.0); Neutrophils # (auto) 2.9 uL; Platelet Count (auto) 148 10^3/uL (140-450); Red Blood Cells 2.51 10^6/uL (4.5-5.90); Red Cell Distribution Width 12.9 % (11.8-14.3)
--- NOTE | 2018-09-02 07:17 | NUR ---
closing notes endorsed care to day shift nurse.
--- NOTE | 2018-09-02 07:45 | NUR ---
DR. TOLBERT AT BEDSIDE. PREVENA PLACED, PT TOLERATED WELL. WILL CONTINUE CARE.
[2018-09-02] MEDS: Ensure HIGH Protein Chocolate 8oz Bottle PO SCH ×3 (08:12→18:16)
[2018-09-02] MEDS: LACTATED RINGER'S 1,000 ML IV SCH ×3 (08:12→20:15)
[2018-09-02] MEDS: ONDANSETRON HCL 4 MG/2 ML VIAL IV PRN ×3 (08:46→21:53)
[2018-09-02] MEDS ORDERED: BISACODYL 5 MG EC TAB PO ONE (10:15)
[2018-09-02] MEDS ORDERED: LACTULOSE 20Gm/30ML SOLN PO ONE (10:15)
[2018-09-02] MEDS: oxyCODONE ER 20 MG TAB PO SCH ×2 (10:22→21:54)
[2018-09-02] MEDS: DOCUSATE SOD 100 MG CAP PO SCH ×2 (10:23→21:54)
[2018-09-02] MEDS: MULTIPLE VITAMIN TAB PO SCH (10:23)
[2018-09-02] MEDS: ASPirin-EC 325mg tab PO SCH ×2 (10:23→21:54)
--- NOTE | 2018-09-02 13:00 | NUR ---
SLOT OPERATIONS MANAGER LORI AT BEDSIDE. Addendum: 09/02/18 at 1857 by Sacha Pete RN RN PLEASE DISREGARD THIS NOTE. WRONG TIME.
--- NOTE | 2018-09-02 13:00 | NUR ---
NUTRITION ASSESSMENT NOTES Please refer to link notes of nutrition screen form filed under the intervention section of the plan of care for further details. Est. Needs: 2050 kcal to 2250 kcal (15-20 kcal/kgBW), 111 gms to 139 gms pro (0.8-1.0 gms/kgBW). Will continue to monitor pertinent labs and reassess nutrient need prn Thank you. Addendum: 09/02/18 at [address] Amended: Links added.
--- NOTE | 2018-09-02 13:21 | NUR ---
DR. TOLBERT NOTIFIED OF PREVENA IS FULL OF DRAINAGE. NEW ORDER STAT WOUND CONSULT FOR WOUND VAC. D/C PREVENA DO DRESSING CHANGE PRN. WILL CARRY OUT ORDER.
--- NOTE | 2018-09-02 14:10 | NUR ---
FOOD INSPECTOR SINDI AT BEDSIDE.
--- NOTE | 2018-09-02 14:15 | NUR ---
WOUND CARE NOTE: IN TO CHANGE PATIENT FROM PREVENA VAC TO INFOVAC PER MD ORDER AT THIS TIME. PATIENT HAD RECENT HIP REPLACEMENT SURGERY TO LEFT HIP, WITH PREVENA VAC PLACED BY SURGEON. PATIENT'S VACUTAINER IS FULL, DRESSING IS NOW SATURATED. REMOVED PREVENA VAC. PATIENT HAS A WELL APPROXIMATED SURGICAL INCISION THAT IS STAPLED CLOSED. PERIWOUND/INCISION SKIN IS PINK. NO S/S OF INFECTION NOTED. CLEANSED WOUND WITH WOUND CLEANSER, PATTED DRY WITH STERILE GAUZE. APPLIED CAVILON, THEN DRAPE TO KEVIN WOUND AND BRIDGE SKIN. APPLIED BLACK GRANUFOAM TO INCISION AND BRIDGE SKIN TO LEFT ANTERIOR THIGH. SECURED WITH DRAPE. APPLIED TRAC PAD, ATTACHED TO VAC. TURNED VAC ON, SETTING TO 125 MM/HG CONTINUOUS. GOOD SUCTION, NO LEAKS DETECTED. OF NOTE, WOUND PHOTO WAS TAKEN AT THIS TIME FOR REFERENCE. PATIENT TOLERATED EXAM, VAC DRESSING APPLICATION WELL, NOTING NO PAIN BY PATIENT. RECOMMEND: Q 3 DAY/PRN DRESSING CHANGE, SKIN/WOUND CARE PLAN, DIETARY CONSULT, CONTINUED MONITORING BY WOUND CARE TEAM. Addendum: 09/02/18 at 1655 by Gerri King RN Amended: Links added.
[2018-09-02] MEDS: FERROUS SULFATE 325 MG TAB PO SCH ×2 (14:39→18:24)
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
--- NOTE | 2018-09-02 19:26 | NUR ---
Opening Shift Note Assumed care of patient, awake and alert. No S/S of distress/SOB or pain. Family is at bedside. Dressing on left hip is clean, dry, and intact; wound vac is in place set at 125. Instructed on POC and to call for assist PRN, will continue to monitor for changes Q1hr and PRN.
--- NOTE | 2018-09-02 19:27 | NUR ---
CARE ENDORSED TO CONCEPCION HERNÁNDEZ
[2018-09-03] MEDS: HYDROmorphone HCL 2 MG/ML VL IV PRN ×6 (02:07→21:51)
[2018-09-03 05:00] VITALS: BP 117/77
[2018-09-03] MEDS: ceFAZolin 1GM 2 GM in D5W 5% 100 ML IV SCH ×3 (05:44→22:22)
[2018-09-03 05:45] LABS: Basophils # (auto) 0 uL; Basophils % (auto) 0.3 % (0.0-2.0); Eosinophils # (auto) 0.2 uL; Eosinophils % (auto) 3.9 % (0.0-7.0); Hematocrit 23.8 % (41.0-53.0); Lymphocytes # (auto) 1.2 uL; Monocytes # (auto) 0.5 uL; Neutrophils # (auto) 2.7 uL; Nucleated Red Blood Cells % 0.1 %; Red Blood Cells 2.63 10^6/uL (4.5-5.90)
[2018-09-03] MEDS: LACTATED RINGER'S 1,000 ML IV SCH ×3 (05:45→20:25)
[2018-09-03 05:48] LABS: Lymphocytes % (auto) 26.4 % (10.0-50.0); Mean Corpuscular Hemoglobin 30.5 pg (28.0-32.0); Mean Corpuscular Hgb Conc. 33.7 g/dL (32.0-36.0); Mean Corpuscular Volume 90.7 fL (80.0-100.0); Monocytes % (auto) 11.4 % (0.0-12.0); Platelet Count (auto) 183 10^3/uL (140-450); Red Cell Distribution Width 12.7 % (11.8-14.3); White Blood Cell 4.6 10^3/uL (4.4-10.8)
--- NOTE | 2018-09-03 07:45 | NUR ---
Opening Shift Note Assumed care of patient, awake and alert. No S/S of distress/SOB or pain. Wound vac in placed setting @ 125mm/hg,no leaking noted. IV to left FA 22G intact/patent infusing with LR @ 100ml/hr. Instructed on POC and to call for assist PRN. Bed locked in the lowest position, call light within easy reach, will continue to monitor for changes Q1hr and PRN.
[2018-09-03 08:00] VITALS: BP_SYST 111; BP_SYST 112; BP_DIAS 62
[2018-09-03] MEDS: ONDANSETRON HCL 4 MG/2 ML VIAL IV PRN ×2 (08:19→13:47)
[2018-09-03] MEDS: Ensure HIGH Protein Chocolate 8oz Bottle PO SCH ×3 (08:22→17:44)
[2018-09-03] MEDS: FERROUS SULFATE 325 MG TAB PO SCH ×3 (08:22→17:44)
[2018-09-03] MEDS: ASPirin-EC 325mg tab PO SCH ×2 (09:04→21:51)
[2018-09-03] MEDS: DOCUSATE SOD 100 MG CAP PO SCH ×2 (09:04→21:51)
[2018-09-03] MEDS: oxyCODONE ER 20 MG TAB PO SCH ×2 (09:05→23:11)
[2018-09-03] MEDS: MULTIPLE VITAMIN TAB PO SCH (09:05)
--- NOTE | 2018-09-03 10:05 | NUR ---
DR TIPTON AT BEDSIDE.
--- NOTE | 2018-09-03 10:45 | NUR ---
WOUND CARE NOTE: IN TO ASSESS FUNCTION OF WOUND VAC TO SURGICAL INCISION OF LEFT HIP. VAC CONTINUES TO BE RUNNING AT 125 MM/HG CONTINUOUS. GOOD SUCTION, NO LEAKS DETECTED. VACUTAINER HAS APPROXIMATELY 200 CC OF STRAW COLORED SEROUS DRAINAGE NOTED. WOUND CARE TEAM WILL CONTINUE TO MONITOR.
[2018-09-03] MEDS ORDERED: MAGNESIUM CITRATE SOLUTION 300 ML BTL PO ONE (11:00)
[2018-09-03 12:00] VITALS: BP 116/74
[2018-09-03] MEDS: OXYCODONE W/ ACETAMINOPHEN 5/325MG TABLET PO PRN (15:44)
[2018-09-03 16:00] VITALS: BP 126/81
--- NOTE | 2018-09-03 19:17 | NUR ---
CARE ENDORSED TO LASHANDA RN.
--- NOTE | 2018-09-03 19:22 | NUR ---
RECEIVED PATIENT FROM DAY SHIFT RN. PATIENT RESTING IN BED. NO S/S OF DISTRESS NOTED. FRIENDS AT BEDSIDE. PATIENT CHATTING WITH FRIENDS WITH NO S/S OF PAIN NOTED. DRESSING ON LEFT HIP C/D/I, CONNECTING TO WOUND VAC. POC INSTRUCTED AND ENCOURAGED PATIENT TO CALL FOR LOCUM TENENS IF NEEDED. BED IN LOWEST POSITION WITH SIDE RAILS UP X 2. CALL WANG WITHIN REACH. CONTINUE TO MONITOR FOR CHANGES Q1H AND PRN.
[2018-09-03 21:31] VITALS: BP 126/71
--- NOTE | 2018-09-03 21:59 | NUR ---
PATIENT C/O INCISION PAIN @ 02/21. MEDICATED PATIENT ORDERED. CONTINUE TO MONITOR.
[2018-09-04] MEDS: HYDROmorphone HCL 2 MG/ML VL IV PRN ×8 (01:03→23:15)
--- NOTE | 2018-09-04 01:03 | NUR ---
REASSESSED TEMP 99.5. PATIENT C/O PAIN @ 02/21. MEDICATED PATIENT ORDERED. CONTINUE TO MONITOR.
--- NOTE | 2018-09-04 03:00 | NUR ---
PAIN MEDICATION GIVEN FOR PAIN @ 810. CONTINUE TO MONITOR.
--- NOTE | 2018-09-04 03:11 | NUR ---
PATIENT FEELING HOT AND WOULD LIKE TO HAVE MEDICATION FOR FEVER. ASSESSED TEMP 99.1, NO MED AT THIS TIME. ICE PACKS AND COOLING MEASURE APPLIED AT THIS TIME. CONTINUE TO MONITOR.
[2018-09-04 04:52] LABS: Basophils # (auto) 0 uL; Eosinophils # (auto) 0.2 uL; Lymphocytes # (auto) 1.2 uL; Monocytes # (auto) 0.6 uL; Neutrophils # (auto) 3.9 uL; Neutrophils % (auto) 66.7 % (37.0-80.0)
[2018-09-04 04:55] LABS: Basophils % (auto) 0.2 % (0.0-2.0); Hematocrit 23.6 % (41.0-53.0); Hemoglobin 7.9 g/dL (13.5-17.5); Lymphocytes % (auto) 20.5 % (10.0-50.0); Mean Corpuscular Hemoglobin 30.5 pg (28.0-32.0); Mean Corpuscular Hgb Conc. 33.7 g/dL (32.0-36.0); Mean Corpuscular Volume 90.7 fL (80.0-100.0); Monocytes % (auto) 9.6 % (0.0-12.0); Nucleated Red Blood Cells % 0.1 %; Platelet Count (auto) 260 10^3/uL (140-450); Red Cell Distribution Width 12.9 % (11.8-14.3); White Blood Cell 5.9 10^3/uL (4.4-10.8)
[2018-09-04 05:10] LABS: Calcium 7.8 mg/dL (8.5-10.1); Potassium 3.9 mmol/L (3.5-5.1)
[2018-09-04 05:12] LABS: BUN/Creatinine Ratio 7.5
[2018-09-04 05:23] VITALS: BP 123/69
--- NOTE | 2018-09-04 05:30 | NUR ---
JAGUAR OMER CHECKED TEMP 101, WENT TO PATIENT AND REACCESSED TEMP 99.6, CONTINUE COOLING MEASURE, PATIENT STATED CHILLING NOW, WILL COME BACK AND REASSESS TEMP LATER. CONTINUE TO MONITOR.
[2018-09-04] MEDS: ceFAZolin 1GM 2 GM in D5W 5% 100 ML IV SCH ×3 (05:34→21:39)
--- NOTE | 2018-09-04 06:18 | NUR ---
REASSESSED TEMP 99.7. CONTINUE COOLING MEASURE. CONTINUE TO MONITOR.
--- NOTE | 2018-09-04 06:54 | NUR ---
REASSESSED TEMP 99.3. MEDICATED PATIENT FOR PAIN @ 12/21. CONTINUE TO MONITOR.
--- NOTE | 2018-09-04 07:30 | NUR ---
OPENING NOTE OBSERVED PT SITTING UP IN BED. PT DENIES ANY SOB/DISTRESS AT THIS TIME. PT EXPRESSING THAT IS PAIN LEVEL IS TOLERABLE AT THIS TIME, RECENTLY MEDICATED BY NOC RN WITH PRN DILAUDID. PT IS SLIGHTLY DROWSY, BUT ABLE TO ANSWER QUESTIONS APPROPRIATELY. PT UPDATED ON POC AND VERBALIZED UNDERSTANDING. FALL PRECAUTIONS IN PLACE. CALL LIGHT WITHIN REACH. WILL CONTINUE TO MONITOR Q1H AND PRN. CONTINUE PT CARE.
[2018-09-04] MEDS: FERROUS SULFATE 325 MG TAB PO SCH ×3 (08:23→18:03)
[2018-09-04] MEDS: Ensure HIGH Protein Chocolate 8oz Bottle PO SCH ×3 (08:23→18:03)
[2018-09-04 09:00] VITALS: BP 122/53
--- NOTE | 2018-09-04 09:58 | NUR ---
AT BEDSIDE DR. RENTERIA AT BEDSIDE DISCUSSING POC WITH PT AND PT MOTHER. SPOKE TO MD REGARDING PATIENTS AM TEMPERATURE AND EPISODES OF TACHYCARDIA. FOLLOWING ORDERS RECEIVED AND READ BACK: 12 LEAD EKG, WOUND CULTURE, BLOOD CULTURES, URINE CULTURE, SPUTUM CULTURE, CXR R/O PNA, BLE US R/O DVT, IS USE. SPECIMEN CUPS COLLECTED AND PT AWARE OF NEED FOR COLLECTION. REINFORCED IS USE, PT ABLE TO DEMONSTRATE PROPER USE OF IS AND ENCOURAGED TO USE 10X/HR TO PREVENT PNEUMONIA. PT VERBALIZED UNDERSTANDING. 12 LEAD EKG COMPLETED, SHOWING ST 124. EKG SIGNED BY MD AND PLACED IN CHART. Addendum: 09/04/18 at 1455 by Beverly Olivas RN RN ALSO SPOKE TO MD REGARDING H/H. NO ORDERS RECEIVED.
[2018-09-04] MEDS: oxyCODONE ER 20 MG TAB PO SCH ×2 (10:00→21:40)
[2018-09-04] MEDS: DOCUSATE SOD 100 MG CAP PO SCH ×2 (10:00→21:39)
[2018-09-04] MEDS: MULTIPLE VITAMIN TAB PO SCH (10:00)
[2018-09-04] MEDS: ASPirin-EC 325mg tab PO SCH ×2 (10:00→21:39)
[2018-09-04] MEDS: BISACODYL 5 MG EC TAB PO PRN (10:00)
--- NOTE | 2018-09-04 10:30 | NUR ---
WOUND CARE NOTE: IN TO TAKE NEW WOUND CULTURE OF LEFT THIGH WOUND PER HOSPITALIST'S ORDER. REMOVED PORTION OF WOUND VAC DRESSING, EXPOSING INCISION. OBTAINED WOUND CULTURE ULITILIZING THE LANGE TECHNIQUE, SENT OFF TO LAB FOR PROCESSING. WOUND VAC DRESSING RESEALED. VAC RUNNING AT 125 MM/HG CONTINUOUS. GOOD SUCTION, NO LEAKS DETECTED. APPROXIMATELY 300 CC OF STRAW COLORED SEROUS DRAINAGE NOTED IN VACUTAINER. WOUND CARE TEAM WILL CONTINUE TO MONITOR.
--- NOTE | 2018-09-04 10:47 | NUR ---
WOUND CULTURE WOUND CULTURE COLLECTED BY EMERGENCY MANAGEMENT COORDINATORMARIAH. SENT TO LAB VIA BULLET BY PRIMARY RN.
--- NOTE | 2018-09-04 11:08 | NUR ---
TELEMETRY MONITORING SPOKE TO DR. FRENCH REGARDING PREVIOUS ORDER BY MD TO UT TELE. MD WOULD LIKE TELEMETRY MONITORING TO BE CONTINUED AT THIS TIME.
--- NOTE | 2018-09-04 11:54 | NUR ---
US TECH AT BEDSIDE FOR BLE IMAGING.
--- NOTE | 2018-09-04 12:13 | NUR ---
STATUS PATIENTS MOTHER AT NURSES STATION STATING HER SON 'FEELS WEIRD' AND THAT WOUND VAC IS NOT WORKING. PATIENT ASSESSED, PATIENT STATING HE IS 'OK. MAYBE MY MOM NEEDS TO MENTAL HEALTH EVALUATION'. WOUND VAC ASSESSED, NO LEAK NOTED AT THIS TIME. WILL CONTINUE TO MONITOR.
--- NOTE | 2018-09-04 12:40 | NUR ---
STATUS RECEIVED PHONE CALL ON PORTABLE. PT STATING HE 'FEELS WEIRD'. PT ASSESSED AGAIN. PT STATING HE IS EXPERIENCING INTERMITTENT CRAMPING AND NUMBNESS IN LLE. CAP REFILL LESS THAN 3 SECONDS. BLE WARM TO THE TOUCH. PEDAL PULSES EASILY PALPATED. INFORMED DR. FRENCH OF PATIENTS COMPLAINTS. MD AWARE. NO ORDERS RECEIVED AT THIS TIME.
[2018-09-04 13:05] VITALS: BP_SYST 102; BP_SYST 122; BP_DIAS 53; BP_DIAS 70
--- NOTE | 2018-09-04 13:28 | NUR ---
PT 1st visit, patient was having xray from bed. 2nd visit, patient has family inside room, requested to comeback later. Addendum: 09/04/18 at 1329 by JONATHAN SANCHEZ PTT Amended: Links added.
[2018-09-04] MEDS: SODIUM CHLORIDE 0.9% 1,000 ML IV SCH (13:41)
--- NOTE | 2018-09-04 13:41 | NUR ---
STATUS PATIENTS MOTHER AT NURSES STATION AGAIN STATING 'HE JUST DOESN'T FEEL GOOD'. PT ASSESSED, NO S/S OF SOB/ACUTE DISTRESS NOTED. PT REQUESTING PRN DILAUDID AND ZOFRAN. MEDICATED ACCORDING TO MD ORDER. PT REQUESTING HIS TEMPERATURE BE RECHECKED, REMAINS AFEBRILE AT THIS TIME. DR. RENTERIA ON UNIT SAW MOTHER AT NURSES STATION AGAIN. INQUIRED TO WHAT QUESTION WAS. INFORMED MD OF PT/FAMILY CONCERNS REGARDING PT STATUS. MD AWARE. NO ORDERS RECEIVED.
[2018-09-04] MEDS: ONDANSETRON HCL 4 MG/2 ML VIAL IV PRN (13:45)
--- NOTE | 2018-09-04 15:56 | NUR ---
ROUNDS PT RESTING IN BED AT THIS TIME. FAMILY NO LONGER AT BEDSIDE. PT STATES HE IS 'FEELING OKAY'. RE-ENCOURAGED TO CONTACT STAFF FOR PRN ASSISTANCE. CALL LIGHT WITHIN REACH.
[2018-09-04 17:00] VITALS: BP 127/71
[2018-09-04 17:13] VITALS: BP 127/71
--- NOTE | 2018-09-04 19:39 | NUR ---
RECEIVED PATIENT FROM DAY SHIFT RN. PATIENT RESTING IN BED. NO S/S OF DISTRESS NOTED. FAMILY AT BEDSIDE. C/O PAIN @ 02/21. WILL COME BACK FOR PAIN MEDICATION WHEN THE TIME IS DUE. PATIENT VERBALIZED UNDERSTANDING. DRESSING ON LEFT HIP C/D/I, CONNECTING TO WOUND VAC. POC INSTRUCTED AND ENCOURAGED PATIENT TO CALL FOR BELT LACER IF NEEDED. BED IN LOWEST POSITION WITH SIDE RAILS UP X 2. CALL WANG WITHIN REACH. CONTINUE TO MONITOR FOR CHANGES Q1H AND PRN.
--- NOTE | 2018-09-04 21:25 | NUR ---
ASSISTED PATIENT TO BEDSIDE COMMODE AND BACK TO BED. PATIENT TOLERATED WELL. NO BM. PER MEKA, HR UP TO 150S, WHEN PATIENT BACK TO BED, HR BACK TO 120S. NO S/S OF DISTRESS NOTED. TOTAL LINEN CHANGES. CONTINUE TO MONITOR.
[2018-09-04 21:30] VITALS: BP 131/58
--- NOTE | 2018-09-04 23:20 | NUR ---
PATIENT C/O PAIN @ 02/21, MEDICATED PATIENT ORDERED. CONTINUE TO MONITOR.
--- NOTE | 2018-09-05 00:07 | NUR ---
PUT PATIENT BACK ON THE SCD. CONTINUE CARE.
[2018-09-05] MEDS: SODIUM CHLORIDE 0.9% 1,000 ML IV SCH ×2 (01:35→04:31)
[2018-09-05] MEDS: HYDROmorphone HCL 2 MG/ML VL IV PRN ×7 (02:06→21:45)
--- NOTE | 2018-09-05 02:07 | NUR ---
PATIENT C/O PAIN @ 02/21, MEDICATED PATIENT ORDERED. CONTINUE TO MONITOR.
--- NOTE | 2018-09-05 03:35 | NUR ---
PATIENT SLEEPING. NO S/S OF DISTRESS NOTED. CONTINUE CAR.E
[2018-09-05 04:30] VITALS: BP_SYST 113; BP_SYST 136; BP_DIAS 64; BP_DIAS 65
--- NOTE | 2018-09-05 05:05 | NUR ---
MEDICATED PATIENT FOR PAIN @ 12/21. CONTINUE TO MONITOR.
[2018-09-05] MEDS: ceFAZolin 1GM 2 GM in D5W 5% 100 ML IV SCH ×3 (05:52→22:44)
--- NOTE | 2018-09-05 06:46 | NUR ---
DR ANAYA AT BEDSIDE.
--- NOTE | 2018-09-05 07:30 | NUR ---
OPENING NOTE OBSERVED PT SITTING UP IN BED, NO SOB/DISTRESS NOTED. PT C/O 12/21 LEFT HIP PAIN. WILL MEDICATE ACCORDING TO MD ORDER WITH PRN DILAUDID. PT EXPRESSING CONCERNS REGARDING NO BM FOR 8 DAYS, DIETARY REQUEST FORM FAXED TO DEPARTMENT FOR PRUNE JUICE. WILL ADMINISTER PRN DULCOLAX. PT INITIALLY STATING HE DOES NOT WANT TO TAKE IRON SUPPLEMENTATION DUE TO CONSTIPATION. INFORMED PT HE HAS THE RIGHT TO REFUSE, BUT MOST RECENT CBC SHOWS ANEMIA. PT AGREEABLE TO ADMINISTRATION. PT UPDATED ON POC AND PT VERBALIZED UNDERSTANDING. CALL LIGHT WITHIN REACH. FALL PRECAUTIONS IN PLACE. WILL CONTINUE TO MONITOR Q1H AND PRN. CONTINUE PT CARE.
[2018-09-05] MEDS: Ensure HIGH Protein Chocolate 8oz Bottle PO SCH ×3 (08:05→18:27)
[2018-09-05] MEDS: FERROUS SULFATE 325 MG TAB PO SCH (08:13)
[2018-09-05] MEDS: BISACODYL 5 MG EC TAB PO PRN (08:13)
[2018-09-05 08:39] VITALS: BP 112/62
--- NOTE | 2018-09-05 09:00 | NUR ---
WOUND CARE NOTE: IN TO CHANGE OUT VACUTAINER, AND CHECK WOUND VAC DRESSING FUNCTION AT THIS TIME. 340 CC OF WOUND DRAINAGE NOTED WITHIN CONTAINER. REMOVED VACUTAINER, SWAPPED OUT WITH NEW VACUTAINER. VAC CONTINUES TO RUN AT 125 MM/HG CONTINUOUS. GOOD SUCTION, NO LEAKS DETECTED. DR. TOLBERT HAS ORDERED FOR DRESSING CHANGE FROM INFOVAC TO PREVENA VAC PRIOR TO D/C TOMORROW. WOUND CARE TEAM WILL CONTINUE TO MONITOR.
[2018-09-05] MEDS: MULTIPLE VITAMIN TAB PO SCH (09:50)
[2018-09-05] MEDS: ASPirin-EC 325mg tab PO SCH ×2 (09:50→22:43)
[2018-09-05] MEDS: DOCUSATE SOD 100 MG CAP PO SCH ×2 (09:50→22:43)
[2018-09-05] MEDS: oxyCODONE ER 20 MG TAB PO SCH ×2 (09:51→22:43)
--- NOTE | 2018-09-05 10:20 | NUR ---
WOUND CARE HEAT TREAT OPERATOR, MARIAH, IN TO SEE PATIENT AND SWITCH OUT WOUND VAC CHAMBER.
[2018-09-05] MEDS ORDERED: OXYCODONE W/ ACETAMINOPHEN 5/325MG TABLET PO PRN (10:45)
--- NOTE | 2018-09-05 10:45 | NUR ---
TELE DISCONTINUED ORDERS RECEIVED TO DC TELE MONITORING. MONITOR REMOVED AND RETURNED TO [facility] VIA BULLET SYSTEM.
--- NOTE | 2018-09-05 11:00 | NUR ---
TAP WATER ENEMA TAP WATER ENEMA ADMINISTERED PER MD ORDER. PATIENT POSITIONED ON R. SIDE WITH WEDGE BETWEEN LEGS. PT PLACED ON BED PAIN. WILL MONITOR EFFECTIVENESS.
--- NOTE | 2018-09-05 11:30 | NUR ---
SPOKE TO MD SPOKE TO DR. TIPTON REGARDING STATUS OF TAP WATER ENEMA. MD STATING IF ENEMA IS NOT EFFECTIVE, OK TO ADMINISTER GO-LYTLELY PREP IF NEEDED.
--- NOTE | 2018-09-05 11:37 | NUR ---
PT 1st AM visit, patient was sleeping and wanted to rest. 2nd AM visit, patient was on bed banuelos. Educated patient to let RN know when he is ready to get OOB. Addendum: 09/05/18 at 1139 by JONATHAN SANCHEZ PTT Amended: Links added.
--- NOTE | 2018-09-05 12:35 | NUR ---
Nutrition Follow-up Notes Wt.: 138.3 kg Pt was with PT at bedside when rounded this am. per pt records pt to get enema today. per records pt s/p sx for hip injury. pt with no distress noted per nursing currently on regular diet with ensure high protein TID with adequate PO of 75% x 2 days per RN doc Est. Needs: 2050 kcal to 2250 kcal (15-20 kcal/kgBW), 111 gms to 139 gms pro (0.8-1.0 gms/kgBW). Will continue to monitor pertinent labs and reassess nutrient need prn Labs: GLU 107 H, CA 7.8 L, ALB 2.1 L. Skin: Lucho scale 20, low risk, incision at site of sx per rn psychiatric. GI: Pt had 1 BM on 09/04 per rn psychiatric. PES: Altered nutrition related lab values r/t current/chronic medical condition aeb hyperglycemia, low renal labs, hypocalcemia and severe hypoalbuminemia Obesity r.t excessive PO intake aeb 171% IBW, BMI 41.1 kg/m2, hx of wt gain and increased body adiposity Will continue to monitor PO intake, skin status, pertinent labs and weight trend. F/u in 3 to 5 days. Rec.: 1.)Consider Prostat 1 pkt BID instead of ensure HP as pt with adequate PO and obese. 2.) Continue close supervision with meals 3.) Refer to RD for further nutrition educ. and weight monitoring upon discharge. 4.) Continue current plan of care.
[2018-09-05 12:37] VITALS: BP 139/70
--- NOTE | 2018-09-05 13:15 | NUR ---
BOWEL MOVEMENT WHILE PRIMARY RN ON LUNCH. PATIENT REPORTING SMALL BM.
--- NOTE | 2018-09-05 13:27 | NUR ---
BOWEL MOVEMENT PATIENT ASSISTED BACK TO BED FROM BSC W/O INCIDENT. PT ABLE TO HAVE BM, DARK BROWN/BLACK IN COLOR. FORMED PIECES WITH LIQUID STOOL SURROUNDING. PT REPORTING IMPROVEMENT OF ABDOMINAL DISCOMFORT SYMPTOMS.
--- NOTE | 2018-09-05 13:35 | NUR ---
PHYSICAL THERAPY PT IN TO SEE PATIENT. PATIENT AMBULATING IN HALLWAY WITH CRUTCHES.
[2018-09-05 17:23] VITALS: BP 121/57
--- NOTE | 2018-09-05 18:31 | NUR ---
ROUNDS PT SITTING UP IN BED, C/O INCREASED LEFT HIP PAIN. MEDICATED ACCORDING TO MD ORDER WITH PRN DILAUDID. FAMILY AT BEDSIDE. CALL LIGHT WITHIN REACH. WOUND VAC REMAINS IN PLACE TO LEFT HIP. MINIMAL AMOUNT OF YELLOW DRAINAGE NOTED IN COLLECTION CHAMBER.
--- NOTE | 2018-09-05 19:30 | NUR ---
OPENING NOTE REPORT RECEIVED FROM DAY SHIFT RN PATIENT IS RESTING IN BED, FAMILY IS AT BEDSIDE. FULL ASSESSMENT DONE-SEE INTERVENTIONS. WOUND VAC IN PLACE TO LEFT HIP WITH SUCTION CONTINUOUSLY SET TO 125MM HG. NO OUTPUT NOTED TO CANISTER, NO LEAKS DETECTED IN SUCTION. POC FOR TONIGHT DISCUSSED, ALL QUESTIONS ANSWERED. WILL MONITOR Q1H PRN THROUGHOUT SHIFT, CALL LIGHT WITHIN REACH. FALL PRECAUTIONS IN PLACE.
--- NOTE | 2018-09-05 20:18 | NUR ---
BEDSIDE COMMODE ASSISTED PATIENT TO BEDSIDE COMMODE. PATIENT ABLE TO BEAR WEIGHT ON RIGHT LEG AND PIVOT ONTO COMMODE WITHOUT DIFFICULTY PT BACK IN BED, FALL PRECAUTIONS IN PLACE
[2018-09-05 22:00] VITALS: BP 142/75
--- NOTE | 2018-09-06 01:00 | NUR ---
IV removal TO LEFT FOREARM DUE TO LEAKING IV DC'd with clean sterile technique, catheter fully intact. Pressure dressing applied to site. Patient tolerated well.
[2018-09-06] MEDS: HYDROmorphone HCL 2 MG/ML VL IV PRN ×3 (01:10→09:03)
--- NOTE | 2018-09-06 01:15 | NUR ---
IV insertion IV access obtained, via clean sterile technique by inserting 20 gauge catheter at RIGHT AC after 1 attempt(s). IV secured properly. No trauma to site. Patient tolerated well.
[2018-09-06 05:00] VITALS: BP 107/61
[2018-09-06 05:26] LABS: Basophils # (auto) 0 uL; Eosinophils # (auto) 0.2 uL; Hemoglobin 7.6 g/dL (13.5-17.5); Lymphocytes # (auto) 1.5 uL; Neutrophils # (auto) 3.9 uL; Nucleated Red Blood Cells % 0.1 %; White Blood Cell 6.2 10^3/uL (4.4-10.8)
[2018-09-06 05:28] LABS: Basophils % (auto) 0.5 % (0.0-2.0); Eosinophils % (auto) 3.2 % (0.0-7.0); Hematocrit 22.8 % (41.0-53.0); Lymphocytes % (auto) 24.2 % (10.0-50.0); Mean Corpuscular Hemoglobin 30.5 pg (28.0-32.0); Mean Corpuscular Hgb Conc. 33.3 g/dL (32.0-36.0); Mean Corpuscular Volume 91.6 fL (80.0-100.0); Monocytes # (auto) 0.5 uL; Monocytes % (auto) 8.8 % (0.0-12.0); Neutrophils % (auto) 63.3 % (37.0-80.0); Platelet Count (auto) 382 10^3/uL (140-450); Red Blood Cells 2.49 10^6/uL (4.5-5.90); Red Cell Distribution Width 13.9 % (11.8-14.3)
[2018-09-06] MEDS: ceFAZolin 1GM 2 GM in D5W 5% 100 ML IV SCH ×2 (05:39→13:35)
--- NOTE | 2018-09-06 07:04 | NUR ---
CLOSING NOTE REPORT ENDORSED TO DAY SHIFT RN PT RESTING IN BED. NO OUTPUT DURING SHIFT FROM WOUND VAC. WOUND VAC WITH GOOD SEAL, NO LEAKS NOTED TO LEFT HIP INCISION SITE. FALL PRECAUTIONS IN PLACE, CALL LIGHT WITHIN REACH.
[2018-09-06] MEDS: Ensure HIGH Protein Chocolate 8oz Bottle PO SCH ×2 (07:54→12:05)
--- NOTE | 2018-09-06 08:00 | NUR ---
Opening Shift Note Assumed care of patient, awake, alert and oriented X4. No S/S of distress/SOB, complains of left hip pain, 01/21, Guille Parmar. Left hip incision dressing changed and new wound vac applied by Dr Heck, christophe intact. Bilateral SCD's in place. Instructed on POC and to call for assist PRN, verbalized understanding. Bed locked, in lowest position, call light within reach, will continue to monitor for changes Q1hr and PRN.
--- NOTE | 2018-09-06 08:45 | NUR ---
ORTHOPEDIC Dr Heck at bedside for Ortho follow up. Dressing changed and new wound vac applied to left hip. Plan of care discussed with patient, verbalized understanding.
[2018-09-06 09:00] VITALS: BP 117/66
--- NOTE | 2018-09-06 09:02 | NUR ---
WOUND CARE NOTE: Patient has Discharge order. MD came to change patient's wound vac to L thigh wound from Info Vac to Prevena vac. Patient is resting in bed, alert and oriented and tolerated well. Removed Info vac canister and placed in red bin. Wiped Info Vac and placed in dirty utility for [employer] to sheepskin pickler.
--- NOTE | 2018-09-06 10:15 | NUR ---
ROUNDS Dr Hartman at bedside for rounds, new orders received and followed through. Patient updated on plan of care, verbalized understanding.
[2018-09-06] MEDS: ASPirin-EC 325mg tab PO SCH (10:52)
[2018-09-06] MEDS: oxyCODONE ER 20 MG TAB PO SCH (10:52)
[2018-09-06] MEDS: DOCUSATE SOD 100 MG CAP PO SCH (10:52)
[2018-09-06] MEDS: MULTIPLE VITAMIN TAB PO SCH (10:52)
[2018-09-06 12:34] VITALS: BP 123/66
--- NOTE | 2018-09-06 12:58 | NUR ---
I placed a call out to Dr. Hartman to discuss the plan of care for this patient.
[2018-09-06 14:18] VITALS: BP 123/66
--- NOTE | 2018-09-06 14:18 | NUR ---
I spoke with patient regarding possible need for home health-he said Dr. Heck changed the wound vac this morning to a disposable wound vac and he is to follow up with him in less than a week for change-he states he is ambulating well with the crutches-I let him know that I would find out about possible outpatient physical therapy and would give him a call back.
--- NOTE | 2018-09-06 16:47 | NUR ---
Discharge instructions given as ordered. Encourage to follow up with PMD as instructed. All questions and concerns addressed. Patient verbalized understanding. Medication reconciliation form completed and copy given to patient. IV removed with catheter intact, pressure dressing applied. Patient awaiting transportation.
--- NOTE | 2018-09-06 17:16 | NUR ---
Patient taken to vehicle via wheelchair with all personal belongings, accompanied by staff and family member. No distress noted at time of departure.
== END 2018-09-06 17:15 | disposition home or self-care (01) | DRG 470 ==
LOC: SUR 08:57 → TELE-CENTR 20:17 → CENTRAL 09-05 11:51
PROVIDERS: ADMIT Orthopaedic Surgery Adult Reconstructive Orthopaedic Surgery; ATTEND Internal Medicine
PROC: 30233N1 Transfusion of Nonautologous Red Blood Cells into Peripheral Vein, Percutaneous Approach (ICD-10-PCS; 2018-08-29)
PROC: 0SRB01Z Replacement of Left Hip Joint with Metal Synthetic Substitute, Open Approach (ICD-10-PCS; principal; 2018-08-29 11:32)
DX: M16.52 Unilateral post-traumatic osteoarthritis, left hip (principal); R65.10 Systemic inflammatory response syndrome (SIRS) of non-infectious origin without acute organ dysfunction; Z68.41 Body mass index [BMI] 40.0-44.9, adult; D64.9 Anemia, unspecified; M47.9 Spondylosis, unspecified; E66.01 Morbid (severe) obesity due to excess calories; Z88.2 Allergy status to sulfonamides
CPT/HCPCS: 36415; 71045; 73501; 73502; 80048; 80053; 81001; 82550; 83605; 84146; 84439; 84443; 85014; 85018; 85025; 85610; 85730; 86850; 86900; 86901; 86920; 87040; 87086; 87205; 93970; 97116; 97163; 97530; G0378; J0330; J0690; J1100; J1885; J2250; J2405; J2543; J2704; J7060

== ENCOUNTER 2018-09-16 11:39 | Inpatient (IN) | payer BC ==
[~2018-09-16] VITALS: Ht 195.6 cm; Wt 126.0 kg
[2018-09-16] MEDS ORDERED: ENOXAPARIN SOD 100 MG/1 ML SYRINGE SC ONE (11:45)
[2018-09-16 12:24] LABS: Hemoglobin 9.6 g/dL (13.5-17.5); Lymphocytes # (auto) 0.9 uL; Monocytes # (auto) 0.5 uL
[2018-09-16 12:28] LABS: Basophils # (auto) 0.1 uL; Basophils % (auto) 0.7 % (0.0-2.0); Eosinophils # (auto) 0 uL; Eosinophils % (auto) 0.6 % (0.0-7.0); Hematocrit 29.8 % (41.0-53.0); Lymphocytes % (auto) 12.4 % (10.0-50.0); Mean Corpuscular Hemoglobin 28.3 pg (28.0-32.0); Mean Corpuscular Hgb Conc. 32.2 g/dL (32.0-36.0); Mean Corpuscular Volume 87.7 fL (80.0-100.0); Monocytes % (auto) 6.2 % (0.0-12.0); Neutrophils # (auto) 6.1 uL; Neutrophils % (auto) 80.1 % (37.0-80.0); Platelet Count (auto) 484 10^3/uL (140-450); Red Cell Distribution Width 14.3 % (11.8-14.3); White Blood Cell 7.6 10^3/uL (4.4-10.8)
[2018-09-16 12:39] LABS: INR 1.05 (0.9-1.15); Partial Thromboplastin Time 29.9 sec (23.78-33.04); Prothrombin Time 11.2 sec (9.27-12.13)
[2018-09-16] MEDS ORDERED: MORPHINE SULFATE 4 MG/ML SYR/VIAL IV ONE (12:45)
[2018-09-16] MEDS ORDERED: ONDANSETRON HCL 4 MG/2 ML VIAL IV ONE (12:45)
[2018-09-16 12:53] LABS: Albumin 3.2 g/dL (3.4-5.0); Calcium 9.5 mg/dL (8.5-10.1); Potassium 3.9 mmol/L (3.5-5.1)
[2018-09-16 12:57] LABS: BUN/Creatinine Ratio 13.3; Bilirubin, Total 0.5 mg/dL (0.2-1.0); Total Protein 8.4 g/dL (6.4-8.2)
[2018-09-16] MEDS ORDERED: ONDANSETRON HCL 4 MG/2 ML VIAL IV PRN (13:00)
[2018-09-16] MEDS ORDERED: MORPHINE SULF INJ 2 MG/ML SYRINGE 1ML IV PRN ×2 (13:00)
[2018-09-16] MEDS ORDERED: NITROGLYCERIN 0.4 MG SL TAB SL PRN (13:00)
[2018-09-16] MEDS ORDERED: IOHEXOL 350 MG/ML 100ML IJ ONE (13:05)
[2018-09-16] MEDS: SODIUM CHLORIDE 0.9% 1,000 ML IV SCH ×2 (13:25→14:25)
--- NOTE | 2018-09-16 13:44 | NUR ---
Telemetry admit from [facility] admitted to Telemetry unit after SBAR received. Patient oriented to Solomon Mullins, primary RN, unit, room, bed, and unit policies regarding patient care and visiting hours. Patient now on continuous telemetry monitoring, tele box # 27 and telemetry reading on arrival to unit is Normal Sinus Rhythm. Patient weighed by bedscale and encouraged to call if they need something. All questions and concerns addressed, patient verbalized understanding.
[2018-09-16 15:33] VITALS: BP 123/68
[2018-09-16 16:37] VITALS: BP 111/66
[2018-09-16] MEDS: HYDROmorphone HCL 2 MG/ML VL IV PRN ×2 (16:49→20:49)
--- NOTE | 2018-09-16 19:40 | NUR ---
Opening Shift Note Assumed care of patient, awake and alert oriented x4. No S/S of distress/SOB noted. Bed is in lowest locked position with bed rails up x2 and call light is within reach of the patient. Instructed on POC and to call for assist PRN.
[2018-09-16 20:10] LABS: Urine Bacteria NONE SEEN /hpf (None Seen); Urine Blood Negative /uL (Negative); Urine Specific Gravity 1.022 (1.001-1.035); Urine WBC <1 /hpf (0 - 3)
[2018-09-16 21:00] VITALS: BP 118/65
[2018-09-16] MEDS: ENOXAPARIN SOD 120 MG/0.8 ML SYRINGE SC SCH (21:39)
[2018-09-16] MEDS: APIXABAN 5 MG TAB PO SCH (21:39)
[2018-09-16] MEDS: OXYCODONE W/ ACETAMINOPHEN 5/325MG TABLET PO PRN (22:49)
[2018-09-17] MEDS: HYDROmorphone HCL 2 MG/ML VL IV PRN ×6 (00:51→21:50)
[2018-09-17 05:00] VITALS: BP 121/63
--- NOTE | 2018-09-17 07:21 | NUR ---
Closing note: Patient is resting in bed with breaths even and unlabored. No S/S of distress SOB noted. Bed is in lowest locked position with bed rails up x2 and call light is within reach of the patient. Care endorsed to day shift nurse.
[2018-09-17] MEDS: APIXABAN 5 MG TAB PO SCH ×2 (08:40→21:43)
[2018-09-17] MEDS: ENOXAPARIN SOD 120 MG/0.8 ML SYRINGE SC SCH ×2 (08:40→21:43)
[2018-09-17] MEDS: SODIUM CHLORIDE 0.9% 1,000 ML IV SCH ×2 (09:00→19:00)
[2018-09-17 09:03] LABS: Basophils # (auto) 0 uL; Basophils % (auto) 0.6 % (0.0-2.0); Eosinophils # (auto) 0.1 uL; Lymphocytes # (auto) 1.3 uL; Mean Corpuscular Volume 86.9 fL (80.0-100.0); Monocytes # (auto) 0.3 uL; Neutrophils # (auto) 2.8 uL; Neutrophils % (auto) 61.4 % (37.0-80.0); Nucleated Red Blood Cells % 0.2 %; Red Blood Cells 3.22 10^6/uL (4.5-5.90); White Blood Cell 4.5 10^3/uL (4.4-10.8)
[2018-09-17 09:06] VITALS: BP 126/73
[2018-09-17 09:06] LABS: Eosinophils % (auto) 1.8 % (0.0-7.0); Mean Corpuscular Hemoglobin 27.9 pg (28.0-32.0); Mean Corpuscular Hgb Conc. 32.1 g/dL (32.0-36.0); Monocytes % (auto) 7.2 % (0.0-12.0); Platelet Count (auto) 500 10^3/uL (140-450); Red Cell Distribution Width 14.3 % (11.8-14.3)
[2018-09-17 09:21] LABS: BUN/Creatinine Ratio 11.4; Calcium 9.3 mg/dL (8.5-10.1); Potassium 3.5 mmol/L (3.5-5.1)
--- NOTE | 2018-09-17 11:31 | NUR ---
Dr. Fitzpatrick in to see patient as hospitalist.
[2018-09-17 13:00] VITALS: BP 153/81
[2018-09-17] MEDS: OXYCODONE W/ ACETAMINOPHEN 5/325MG TABLET PO PRN ×2 (16:29→23:49)
[2018-09-17 17:02] VITALS: BP 112/66
--- NOTE | 2018-09-17 20:00 | NUR ---
OPENING NOTE RECEIVED REPORT FROM DAYSHIFT RN. ASSUMING ROLE OF CARE OF PATIENT AT THIS TIME. PATIENT SHOWING NO SIGN OF DISTRESS, SHORTNESS OF BREATH, AND PATIENT STATES CONTINUOUS PAIN AT 7/10. PATIENT WILL BE MEDICATED PER PAIN PROTOCOL NECESSARY. PATIENT EDUCATED ON PLAN OF CARE FOR THE NIGHT AND PATIENT VERBALIZED UNDERSTANDING. BED LOWERED, CALL LIGHT WITHIN REACH, AND PATIENT WILL BE ROUNDED ON EVERY HOUR AND NEEDED.
[2018-09-17 21:34] VITALS: BP 116/61
[2018-09-18] MEDS: HYDROmorphone HCL 2 MG/ML VL IV PRN ×5 (04:35→21:11)
[2018-09-18] MEDS: SODIUM CHLORIDE 0.9% 1,000 ML IV SCH ×2 (05:00→15:00)
[2018-09-18 05:09] VITALS: BP 139/61
[2018-09-18 06:12] LABS: Eosinophils # (auto) 0.1 uL; Monocytes # (auto) 0.4 uL; Neutrophils # (auto) 2.2 uL; Nucleated Red Blood Cells % 0.1 %; White Blood Cell 4.4 10^3/uL (4.4-10.8)
[2018-09-18 06:15] LABS: Basophils # (auto) 0 uL; Basophils % (auto) 0.8 % (0.0-2.0); Eosinophils % (auto) 2.7 % (0.0-7.0); Hematocrit 26.3 % (41.0-53.0); Hemoglobin 8.7 g/dL (13.5-17.5); Lymphocytes # (auto) 1.6 uL; Lymphocytes % (auto) 36.7 % (10.0-50.0); Mean Corpuscular Hemoglobin 28.3 pg (28.0-32.0); Mean Corpuscular Hgb Conc. 32.9 g/dL (32.0-36.0); Monocytes % (auto) 8.9 % (0.0-12.0); Neutrophils % (auto) 50.9 % (37.0-80.0); Platelet Count (auto) 474 10^3/uL (140-450); Red Blood Cells 3.06 10^6/uL (4.5-5.90); Red Cell Distribution Width 14.4 % (11.8-14.3)
[2018-09-18 06:36] LABS: Potassium 3.6 mmol/L (3.5-5.1)
[2018-09-18 06:47] LABS: BUN/Creatinine Ratio 12.5
[2018-09-18 09:00] VITALS: BP 131/71
[2018-09-18] MEDS: APIXABAN 5 MG TAB PO SCH ×2 (09:46→21:11)
[2018-09-18] MEDS: ENOXAPARIN SOD 120 MG/0.8 ML SYRINGE SC SCH ×2 (09:46→21:11)
[2018-09-18 13:00] VITALS: BP 112/62
[2018-09-18] MEDS: OXYCODONE W/ ACETAMINOPHEN 5/325MG TABLET PO PRN ×2 (15:12→22:58)
[2018-09-18 17:00] VITALS: BP 131/70
--- NOTE | 2018-09-18 20:00 | NUR ---
OPENING NOTE RECEIVED REPORT FROM DAYSHIFT RN. ASSUMING ROLE OF CARE OF PATIENT AT THIS TIME. PATIENT'S FAMILY AT BEDSIDE. PATIENT EDUCATED ON PLAN OF CARE FOR THE NIGHT AND PATIENT VERBALIZED UNDERSTANDING. PATIENT SHOWING NO SIGN OF DISTRESS, SHORTNESS OF BREATH, AND PATIENT STATES CONTINUOUS PAIN AT 7-8/10. PATIENT WILL BE MEDICATED PER PAIN PROTOCOL. BED LOWERED, CALL LIGHT WITHIN REACH, AND PATIENT WILL BE ROUNDED ON EVERY HOUR AND NEEDED.
[2018-09-18 21:30] VITALS: BP 125/72
[2018-09-19] MEDS: SODIUM CHLORIDE 0.9% 1,000 ML IV SCH ×3 (01:05→21:00)
[2018-09-19] MEDS: HYDROmorphone HCL 2 MG/ML VL IV PRN ×6 (01:05→23:15)
[2018-09-19 04:30] VITALS: BP 117/59
--- NOTE | 2018-09-19 08:00 | NUR ---
Opening Shift Note Assumed care of patient, awake, alert and oriented X4. No S/S of distress/SOB, complains of left lower leg pain, 01/21. Tele# 27, sinus rhythm @ 95 bpm. IV to left antecubital, 20 gauge, patent and infusing 0.9% NS @ 100 ml/hr. Left hip incision with dressing clean, dry and intact. Instructed on POC and to call for assist PRN, verbalized understanding. Bed locked, in lowest position, call light within reach, will continue to monitor for changes Q1hr and PRN.
[2018-09-19] MEDS: OXYCODONE W/ ACETAMINOPHEN 5/325MG TABLET PO PRN ×2 (08:35→22:02)
[2018-09-19 09:00] VITALS: BP 122/77
[2018-09-19] MEDS: APIXABAN 5 MG TAB PO SCH (09:53)
[2018-09-19] MEDS: ENOXAPARIN SOD 120 MG/0.8 ML SYRINGE SC SCH (09:53)
[2018-09-19] MEDS ORDERED: HEPARIN DRIP/D5W 100UNITS/ML 250 ML IV SCH (10:19)
--- NOTE | 2018-09-19 11:15 | NUR ---
ROUNDS Dr Hartman at bedside for rounds, new orders received and followed through. Patient updated on plan of care, verbalized understanding.
[2018-09-19 12:44] LABS: INR 1.07 (0.9-1.15); Partial Thromboplastin Time 32.9 sec (23.78-33.04); Prothrombin Time 11.4 sec (9.27-12.13)
[2018-09-19 12:47] VITALS: BP 112/72
[2018-09-19 12:58] LABS: Potassium 3.8 mmol/L (3.5-5.1)
[2018-09-19 13:03] LABS: Albumin 2.7 g/dL (3.4-5.0); BUN/Creatinine Ratio 9.7; Bilirubin, Total 0.3 mg/dL (0.2-1.0); Calcium 9.1 mg/dL (8.5-10.1); Total Protein 7.4 g/dL (6.4-8.2)
[2018-09-19] MEDS: HEPARIN DRIP/D5W 100UNITS/ML 250 ML IV SCH (15:02)
[2018-09-19 16:31] VITALS: BP 119/69
--- NOTE | 2018-09-19 19:05 | NUR ---
Opening Shift Note Assumed care of patient, sitting up in bed watching television, awake and alert oriented x4. No S/S of distress or SOB noted, pt. stating pain of 9/10 to the lower left leg, will medicate per MD orders. Updated pt. on POC and to call for assist as needed. Pt. has 20 gauge IV to the left AC running heparin drip at 20ml/hr. Bed locked in lowest position with bed rails up x2 and call light is within reach of the patient. Will continue to monitor Q1hr and PRN for changes.
--- NOTE | 2018-09-19 19:33 | NUR ---
Care endorsed to BETTY Azar, night nurse.
--- NOTE | 2018-09-19 21:55 | NUR ---
PTT 39.0, increase heparin drip by 200units/HR. Rate now running at 22 ml/hr.
[2018-09-19 22:00] VITALS: BP 122/82
[2018-09-20] MEDS: HEPARIN DRIP/D5W 100UNITS/ML 250 ML IV SCH ×4 (00:29→22:24)
[2018-09-20] MEDS: HYDROmorphone HCL 2 MG/ML VL IV PRN ×5 (03:06→21:11)
[2018-09-20 05:27] LABS: Eosinophils # (auto) 0.1 uL; Hemoglobin 9.2 g/dL (13.5-17.5); Monocytes # (auto) 0.4 uL; Neutrophils # (auto) 2.2 uL
[2018-09-20 05:28] VITALS: BP 108/60
[2018-09-20 05:30] LABS: Basophils # (auto) 0.1 uL; Basophils % (auto) 1.2 % (0.0-2.0); Eosinophils % (auto) 2.8 % (0.0-7.0); Hematocrit 28.4 % (41.0-53.0); Lymphocytes # (auto) 1.8 uL; Lymphocytes % (auto) 39.4 % (10.0-50.0); Mean Corpuscular Hemoglobin 28.1 pg (28.0-32.0); Mean Corpuscular Hgb Conc. 32.6 g/dL (32.0-36.0); Mean Corpuscular Volume 86.1 fL (80.0-100.0); Monocytes % (auto) 8.2 % (0.0-12.0); Neutrophils % (auto) 48.4 % (37.0-80.0); Platelet Count (auto) 468 10^3/uL (140-450); Red Cell Distribution Width 14.9 % (11.8-14.3); White Blood Cell 4.6 10^3/uL (4.4-10.8)
[2018-09-20 05:44] LABS: BUN/Creatinine Ratio 13.8; Calcium 8.8 mg/dL (8.5-10.1); Potassium 3.5 mmol/L (3.5-5.1)
[2018-09-20 05:50] LABS: INR 1.04 (0.9-1.15); Partial Thromboplastin Time 46.7 sec (23.78-33.04); Prothrombin Time 11.1 sec (9.27-12.13)
[2018-09-20] MEDS: SODIUM CHLORIDE 0.9% 1,000 ML IV SCH ×2 (06:02→10:45)
--- NOTE | 2018-09-20 06:09 | NUR ---
PTT 46.7, increase heparin drip by 200units/HR. Rate now running at 24 ml/hr.
--- NOTE | 2018-09-20 07:45 | NUR ---
OPENING SHIFT NOTE ASSUMED CARE OF PATIENT. PATIENT AWAKE AND ALERT SITTING UP IN BED. NO S/S OF DISTRESS OR SOB NOTED. C/O PAIN 4/10 TO LEFT LEG. NOTED HEPARIN RUNNING 24ML/HR. PATIENT TOLERATING WELL. INFORMED TO NOTIFY OF ANY BLEEDING NOTED, VERBALIZED UNDERSTANDING. BED IN LOWEST LOCKED POSITION, CALL LIGHT WITHIN REACH. REVIEWED POC WITH PATIENT AND INSTRUCTED TO CALL FOR ASSIST NEEDED. WILL CONTINUE TO MONITOR.
[2018-09-20 09:00] VITALS: BP 120/73
[2018-09-20] MEDS ORDERED: OXYCODONE W/ ACETAMINOPHEN 5/325MG TABLET PO PRN (11:00)
[2018-09-20] MEDS ORDERED: HEPARIN SODIUM (PORCINE) 5000 UNITS/ML 1ML VIAL IV ONE (12:15)
[2018-09-20] MEDS ORDERED: HEPARIN SODIUM (PORCINE) 5000 UNITS/ML 1ML VIAL SC ONE (12:15)
--- NOTE | 2018-09-20 12:28 | NUR ---
HEPARIN PROTOCOL RECEIVED CALL FROM PHARMACY REGARDING APTT 30.00. UPON LAB VERIFICATION APTT RESULTS 30.00 PER PROTOCOL PATIENT TO RECEIVE 5000U BOLUS AND INCREASE RATE 3ML/HR. WITH DOUBLE VERIFICATION WITH SECONDARY RN, 5000U BOLUS GIVEN AND INCREASED RATE FROM 24ML/HR TO 27ML/HR. WILL CONTINUE TO MONITOR.
[2018-09-20] MEDS: KETOROLAC TROMETH 30 MG/ML 1ML VIAL IV PRN ×2 (12:46→19:28)
[2018-09-20 13:00] VITALS: BP 133/75
--- NOTE | 2018-09-20 15:33 | NUR ---
NUTRITION ASSESSMENT NOTES Please refer to link notes of nutrition screen form filed under the intervention section of the plan of care for further details. Est. Needs: 2350 kcal to 2950 kcal (18-23 kcal/kgBW), 103 gms to 128 gms pro (0.8-1.0 gms/kgBW). Will continue to monitor pertinent labs and reassess nutrient need prn Thank you. Addendum: 09/20/18 at [address] Amended: Links added.
--- NOTE | 2018-09-20 16:35 | NUR ---
IV insertion IV access obtained, via clean sterile technique by inserting 20 gauge catheter at RIGHT FOREARM after X1 attempt. IV secured properly. No trauma to site. Patient tolerated well.
[2018-09-20 17:12] VITALS: BP 124/69
--- NOTE | 2018-09-20 19:05 | NUR ---
HEPARIN PROTOCOL APTT 86.70 CHANGED RATE PER PROTOCOL WITH SECONDARY RN VERIFICATION.
--- NOTE | 2018-09-20 19:15 | NUR ---
END OF SHIFT NOTE PATIENT RESTING COMFORTABLY IN BED AT THIS TIME. NO S/S OF DISTRESS OR SOB NOTED. BED IN LOWEST LOCKED POSITION, CALL LIGHT WITHIN REACH. CARE ENDORSED TO NOC BETTY WAGGONER.
--- NOTE | 2018-09-20 20:05 | NUR ---
Opening Shift Note Assumed care of patient, sitting up in bed watching television with family at bedside, awake and alert oriented x4. No S/S of distress or SOB noted, pt. stating pain of 8/10 to the lower left leg, will medicate per MD orders. Respirations are even and unlabored. Updated pt. on POC and instructed to call for assistance as needed. Bed locked in lowest position with bed rails up x2 and call light is within reach of the patient. Will continue to monitor Q1hr and PRN for changes.
[2018-09-20 21:49] VITALS: BP 116/62
[2018-09-21] MEDS: HYDROmorphone HCL 2 MG/ML VL IV PRN ×5 (00:27→20:50)
[2018-09-21 01:10] LABS: INR 1.04 (0.9-1.15); Partial Thromboplastin Time 65.7 sec (23.78-33.04); Prothrombin Time 11.1 sec (9.27-12.13)
--- NOTE | 2018-09-21 01:31 | NUR ---
PTT 65.7 -No changes made to heparin drip per protocol.
[2018-09-21] MEDS: KETOROLAC TROMETH 30 MG/ML 1ML VIAL IV PRN ×2 (02:04→08:19)
[2018-09-21] MEDS: SODIUM CHLORIDE 0.9% 1,000 ML IV SCH (02:05)
[2018-09-21 05:33] VITALS: BP 117/63
[2018-09-21 06:39] LABS: INR 1.04 (0.9-1.15); Partial Thromboplastin Time 58.3 sec (23.78-33.04); Prothrombin Time 11.1 sec (9.27-12.13)
--- NOTE | 2018-09-21 07:32 | NUR ---
OPENING SHIFT NOTE ASSUMED CARE OF PATIENT. PATIENT AWAKE AND ALERT SITTING UP IN BED. NO S/S OF DISTRESS OR SOB NOTED. REVIEWED POC WITH PATIENT AND INSTRUCTED TO CALL FOR ASSIST NEEDED. BED IN LOWEST LOCKED POSITION, CALL LIGHT WITHIN REACH. CONTINUING TO MONITOR.
--- NOTE | 2018-09-21 08:15 | NUR ---
HEPARIN APTT RESULTED 58.30. PER PROTOCOL NO CHANGE NEEDED. CONTINUING RATE AT 25ML/HR. CONTINUING TO MONITOR.
[2018-09-21] MEDS: HEPARIN DRIP/D5W 100UNITS/ML 250 ML IV SCH (08:18)
[2018-09-21 08:48] VITALS: BP 114/61
--- NOTE | 2018-09-21 10:10 | NUR ---
AT BEDSIDE DR TIPTON AT BEDSIDE AT THIS TIME. CONTINUING TO MONITOR.
--- NOTE | 2018-09-21 10:15 | NUR ---
HEPARIN SPOKE WITH NATHAN CHILDREN'S LITERATURE PROFESSOR REGARDING HEPARIN DRIP PRIOR TO PROCEDURE. PER NATHAN, STOP HEPARIN. HEPARIN STOPPED AT THIS TIME. PATIENT TO GO DOWN FOR PROCEDURE.
--- NOTE | 2018-09-21 10:30 | NUR ---
OFF UNIT PATIENT OFF UNIT AT THIS TIME TO LACE MENDER FOR THROMBECTOMY WITH DR. BAE.
[2018-09-21] MEDS ORDERED: IOHEXOL 350 MG/ML 100ML IJ ONE ×2 (11:34→14:19)
[2018-09-21] MEDS ORDERED: LIDOCAINE 2%HCL (LOCAL ANESTH.) INJ 20ML MDV ONE (11:34)
[2018-09-21] MEDS ORDERED: fentaNYL CITRATE 100 MCG/2 ML VL ONE (12:02)
[2018-09-21] MEDS ORDERED: MIDAZOLAM HCL 1MG/1ML-2 ML VIAL ONE (12:02)
[2018-09-21] MEDS ORDERED: SODIUM CHL 0.9% 50 ML ONE ×3 (12:09→13:44)
[2018-09-21] MEDS ORDERED: ANGIOMAX 250 MG VIAL IV ONE ×2 (12:09→13:44)
[2018-09-21] MEDS ORDERED: CATHFLO ACTIVASE (ALTEPLASE) 2 MG VIAL IV ONE ×2 (12:30→13:39)
[2018-09-21] MEDS ORDERED: HEPARIN DRIP/D5W 100UNITS/ML 0 ML IV ONE (13:15)
--- NOTE | 2018-09-21 15:10 | NUR ---
REPORT RECEIVED RECEIVED REPORT FROM BETTY REED IN CONDUCTOR/ENGINEER. AWAITING VERIFICATION WHETHER TO START HEPARIN UPON PATIENT'S RETURN. AWAITING CALL BACK.
[2018-09-21] MEDS ORDERED: HEPARIN 1,000 UNITS/ml 1ML VIAL IV ONE (15:15)
--- NOTE | 2018-09-21 15:15 | NUR ---
HEPARIN PER BRIANNA HERNÁNDEZ, STATED SHE SPOKE WITH DR BAE AND ORDERS WERE TO RECEIVE LOADING DOSE OF HEPARIN IN RN PRIOR AUTHORIZATION AND UPON RETURN TO UNIT IF SITE SHOWS NO S/S OF BLEEDING PATIENT TO RECEIVE HEPARIN PREVIOUSLY RECEIVED. ORDERS READ BACK AND VERIFIED THAT PATIENT ENDED PREVIOUSLY RECEIVING 25MLS/HR OF HEPARIN PRIOR TO PROCEDURE THEREFORE PATIENT TO RECEIVE 25ML/HR UPON RETURN. AFTER 1800 APTT RESULTS CONTINUE PROTOCOL. PATIENT TO CONTINUE WITH LEFT LEG FLAT X4 HOURS ENDING AT 1840. AWAITING PATIENTS RETURN TO UNIT.
[2018-09-21] MEDS ORDERED: HEPARIN SODIUM (PORCINE) 5000 UNITS/ML 1ML VIAL ONE (15:23)
--- NOTE | 2018-09-21 15:55 | NUR ---
RETURNED TO UNIT PATIENT RETURNED TO UNIT AT THIS TIME. PATIENT AWAKE AND ALERT LAYING FLAT IN BED. DRESSING TO LEFT POPLITEAL IS CLEAN DRY AND INTACT. ASSESSED AREA SURROUNDING SITE IS SOFT AND NORMAL IN COLOR. PATIENT C/O 8/10 PAIN TO LEFT LOWER EXTREMITY AT THIS TIME. VS WNL. HEPARIN CONTINUED AT THIS TIME PER DR BAE. PATIENT INSTRUCTED TO NOTIFY OF ANY BLEEDING AND VERBALIZED UNDERSTANDING AT THIS TIME. CONTINUING TO MONITOR.
[2018-09-21 17:00] VITALS: BP 129/69
[2018-09-21 19:21] LABS: INR 1.08 (0.9-1.15); Partial Thromboplastin Time 54.5 sec (23.78-33.04); Prothrombin Time 11.5 sec (9.27-12.13)
--- NOTE | 2018-09-21 19:30 | NUR ---
Opening Shift Note Assumed care of patient, awake and alert. No S/S of distress/SOB or pain. Instructed on POC and to call for assist PRN, will continue to monitor for changes Q1hr and PRN. Heparin running at 25 ml/hr verified with day shift RN. Popliteal dressing on left leg intact with no bleeding noted. Side rails up x2. Bed locked in lowest position. Call light within reach.
--- NOTE | 2018-09-21 19:40 | NUR ---
APTT result at 54.50, down from 58.30. Per protocol no bolus and no changes needed at this time. Addendum: 09/22/18 at 0125 by DORITA HARP RN RN Patient receiving Heparin 25ml/hr
[2018-09-21 22:00] VITALS: BP 121/67
[2018-09-22] MEDS: HYDROmorphone HCL 2 MG/ML VL IV PRN ×6 (00:20→20:41)
[2018-09-22] MEDS: HEPARIN DRIP/D5W 100UNITS/ML 250 ML IV SCH ×3 (01:13→19:51)
[2018-09-22 01:24] LABS: INR 1.07 (0.9-1.15); Partial Thromboplastin Time 48.2 sec (23.78-33.04); Prothrombin Time 11.4 sec (9.27-12.13)
[2018-09-22] MEDS: SODIUM CHLORIDE 0.9% 1,000 ML IV SCH ×2 (01:27→17:12)
--- NOTE | 2018-09-22 01:30 | NUR ---
HEPARIN APTT RESULTED 48.20. PER PROTOCOL INCREASE RATE BY 2 ML/HR. INCREASED RATE TO 27 ML/HR FROM 25 ML/HR. CONTINUING TO MONITOR.
--- NOTE | 2018-09-22 03:06 | NUR ---
Rounds Patient in bed asleep with no signs of distress/sob/pain. Will continue to monitor.
[2018-09-22 05:09] VITALS: BP 102/51
[2018-09-22 06:07] LABS: Basophils # (auto) 0 uL; Basophils % (auto) 0.6 % (0.0-2.0); Eosinophils # (auto) 0.1 uL; Eosinophils % (auto) 2.4 % (0.0-7.0); Hematocrit 28.7 % (41.0-53.0); Hemoglobin 9.3 g/dL (13.5-17.5); Lymphocytes # (auto) 1.7 uL; Lymphocytes % (auto) 40.6 % (10.0-50.0); Mean Corpuscular Hemoglobin 28.1 pg (28.0-32.0); Mean Corpuscular Hgb Conc. 32.4 g/dL (32.0-36.0); Mean Corpuscular Volume 86.6 fL (80.0-100.0); Monocytes # (auto) 0.3 uL; Monocytes % (auto) 7.8 % (0.0-12.0); Neutrophils % (auto) 48.6 % (37.0-80.0); Platelet Count (auto) 373 10^3/uL (140-450); Red Blood Cells 3.32 10^6/uL (4.5-5.90); Red Cell Distribution Width 15.5 % (11.8-14.3); White Blood Cell 4.1 10^3/uL (4.4-10.8)
[2018-09-22 06:18] LABS: Potassium 3.6 mmol/L (3.5-5.1)
[2018-09-22 06:26] LABS: BUN/Creatinine Ratio 15.3; Calcium 8.5 mg/dL (8.5-10.1)
[2018-09-22 06:28] LABS: INR 1.07 (0.9-1.15); Prothrombin Time 11.4 sec (9.27-12.13)
--- NOTE | 2018-09-22 06:30 | NUR ---
Attempted to call lab regarding wrong blood draw for aptt order time was 0645 but blood was drawn at 0450.
--- NOTE | 2018-09-22 07:09 | NUR ---
Endorsed care to day shift RN.
[2018-09-22 07:24] LABS: Partial Thromboplastin Time 72.7 sec (23.78-33.04)
--- NOTE | 2018-09-22 07:30 | NUR ---
Report received. Patient is sitting up in bed. Patient is alert and oriented. No S/S distress. Call light in reach. Will continue to monitor.
[2018-09-22 08:49] LABS: INR 1.07 (0.9-1.15); Partial Thromboplastin Time 61.8 sec (23.78-33.04); Prothrombin Time 11.4 sec (9.27-12.13)
[2018-09-22 08:58] VITALS: BP 115/66
[2018-09-22 13:00] VITALS: BP 116/60
[2018-09-22 14:30] LABS: INR 1.07 (0.9-1.15); Partial Thromboplastin Time 66.5 sec (23.78-33.04); Prothrombin Time 11.4 sec (9.27-12.13)
[2018-09-22 16:51] VITALS: BP_SYST 116; BP_SYST 140; BP_DIAS 69; BP_DIAS 87
--- NOTE | 2018-09-22 17:12 | NUR ---
PTT 66.5. No change in Heparin infusion.
--- NOTE | 2018-09-22 19:30 | NUR ---
RECEIVED PT FROM DAY RN POC REVIEWED
--- NOTE | 2018-09-22 20:50 | NUR ---
NOTIFIED LAB CONCERNING RESULTS OF PTT PT IS ON A HEPARIN GTT
[2018-09-22 22:00] VITALS: BP 115/64
[2018-09-23] VITALS (26 sets, daily range): BP systolic 98–129; BP diastolic 49–74
[2018-09-23] MEDS: HYDROmorphone HCL 2 MG/ML VL IV PRN ×5 (00:34→23:00)
--- NOTE | 2018-09-23 01:03 | NUR ---
PAIN RELIEVED WITH MED GIVEN RESTING COMFORTABLE WITH CALL LIGHT WITHIN REACH
--- NOTE | 2018-09-23 05:25 | NUR ---
AWOKE AM CARE GIVEN PAIN RELIEVED WITH MED GIVEN
[2018-09-23] MEDS: SODIUM CHLORIDE 0.9% 1,000 ML IV SCH ×2 (05:36→22:35)
[2018-09-23 06:02] LABS: Basophils # (auto) 0 uL; Basophils % (auto) 0.7 % (0.0-2.0); Eosinophils # (auto) 0.1 uL; Eosinophils % (auto) 2.9 % (0.0-7.0); Hematocrit 28.4 % (41.0-53.0); Hemoglobin 9.4 g/dL (13.5-17.5); Lymphocytes # (auto) 1.9 uL; Lymphocytes % (auto) 48.2 % (10.0-50.0); Mean Corpuscular Hemoglobin 28.3 pg (28.0-32.0); Mean Corpuscular Hgb Conc. 33.1 g/dL (32.0-36.0); Mean Corpuscular Volume 85.4 fL (80.0-100.0); Monocytes # (auto) 0.4 uL; Monocytes % (auto) 8.8 % (0.0-12.0); Neutrophils # (auto) 1.6 uL; Neutrophils % (auto) 39.4 % (37.0-80.0); Nucleated Red Blood Cells % 0.1 %; Platelet Count (auto) 356 10^3/uL (140-450); Red Blood Cells 3.33 10^6/uL (4.5-5.90); Red Cell Distribution Width 15.6 % (11.8-14.3)
[2018-09-23 06:14] LABS: INR 1.09 (0.9-1.15); Prothrombin Time 11.6 sec (9.27-12.13)
[2018-09-23 06:15] LABS: Partial Thromboplastin Time 85.6 sec (23.78-33.04)
--- NOTE | 2018-09-23 06:53 | NUR ---
SPOKE WITH PHARMACY PTS PTT IS 85.60, PTS HEPARIN GTT IS REDUCED TO 25ML/HR, AT 2500 UNITS, PT UPDATED ON NEW LABS AND POC.
[2018-09-23] MEDS: HEPARIN DRIP/D5W 100UNITS/ML 250 ML IV SCH (07:07)
--- NOTE | 2018-09-23 07:08 | NUR ---
REPORT GIVEN TO AM NURSE POC REVIEWED
--- NOTE | 2018-09-23 07:30 | NUR ---
Opening Shift Note Assumed care of patient, awake and alert. No S/S of distress/SOB. Instructed on POC and to call for assist PRN, will continue to monitor for changes Q1hr and PRN. Patient noted on continuous Heparin drip as ordered currently 25ml/hr and NS @60ml/hr. Call light within reach will cont to monitor
[2018-09-23] MEDS ORDERED: HYDROmorphone HCL 2 MG/ML VL IV PRN (10:00)
--- NOTE | 2018-09-23 10:07 | NUR ---
Spoke to radiology regarding procedure I spoke to Deisy in radiology regarding poss thrombectomy for today? Per Deisy, Dr Renae states patient will be taken to laboratory technical specialist at 1130 and to hold Heparin drip when patient is ready to get taken down to laboratory technical specialist at that time. Will hold Heparin drip as ordered
[2018-09-23] MEDS ORDERED: MORPHINE SULF INJ 2 MG/ML SYRINGE 1ML IV PRN (10:30)
--- NOTE | 2018-09-23 11:05 | NUR ---
Patient off floor patient taken down to aquatic life laborer for procedure. No s/s of distress or sob noted. Heparin drip stopped at this time as ordered by Dr. Renae. Pt's mother at bedside, care endorsed to Mary zarate. Will cont care on arrival back to unit
[2018-09-23] MEDS ORDERED: IOHEXOL 350 MG/ML 100ML IJ ONE (11:19)
[2018-09-23] MEDS ORDERED: LIDOCAINE 2%HCL (LOCAL ANESTH.) INJ 20ML MDV ONE (11:19)
[2018-09-23] MEDS ORDERED: SODIUM CHL 0.9% 50 ML ONE ×2 (12:05→14:23)
[2018-09-23] MEDS ORDERED: MIDAZOLAM HCL 1MG/1ML-2 ML VIAL ONE ×2 (12:05→13:43)
[2018-09-23] MEDS ORDERED: ANGIOMAX 250 MG VIAL IV ONE ×2 (12:05→14:23)
[2018-09-23] MEDS ORDERED: fentaNYL CITRATE 100 MCG/2 ML VL ONE ×2 (12:05→12:59)
[2018-09-23] MEDS ORDERED: diphenhdrAMINE HCL 50 MG/1 ML VL ONE (13:43)
[2018-09-23] MEDS ORDERED: CATHFLO ACTIVASE (ALTEPLASE) 2 MG VIAL IV ONE ×2 (14:20→14:30)
[2018-09-23] MEDS ORDERED: HEPARIN DRIP/D5W 100UNITS/ML 250 ML IV ONE (14:39)
--- NOTE | 2018-09-23 14:44 | NUR ---
ICU upgrade per Joceline in clinical laboratory technologist, patient will be going to ICU after procedure. House sup aware, charge aware.
--- NOTE | 2018-09-23 14:44 | NUR ---
Pt belongings All patient belongings sent to mechanical shop laborer by stacy Degroot and placed in bed 4 as instructed per Lorri zarate.
[2018-09-23] MEDS ORDERED: HEPARIN 1,000 UNITS/ml 1ML VIAL ONE ×2 (14:46→16:19)
--- NOTE | 2018-09-23 14:54 | NUR ---
Nutrition Follow-up Notes Wt.: 126.7 kg as of yesterday. Pt's watching TV, denies any discomfort except for bilateral leg pain (/) when rounded this morning. 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 Pt's usually has good appetite, eat meals regularly, NKFA and not into any special diets correctional captain. Pt's currently NPO for a procedure today, likely to resume oral diet with active order for Regular diet and for Radiologist consult. Est. Needs: 2350 kcal to 2950 kcal (18-23 kcal/kgBW), 103 gms to 128 gms pro (0.8-1.0 gms/kgBW). Will continue to monitor pertinent labs and reassess nutrient need prn Labs: No new labs today; 09/22/18 Cl 111 H, Cr 0.59 L, Alb 2.7 L Skin: Lucho scale 18, mod risk, pt's left hip, left popliteal incision dry and intact per staff field engineer. GI: Pt had 1 BM yesterday per staff field engineer. PES: Altered nutrition related lab values r/t current/chronic medical condition aeb low Cr and mod hypoalbuminemia Obesity r/t food intake more than body requirement aeb 142% IBW, BMI 33 kg/m2 and increased body adiposity Will continue to monitor NPO status/PO intake, skin status, pertinent labs and weight trend. F/u in 3 to 5 days. Rec.: 1.) Resume oral diet when medically appropriate. 2.) If Albumin level continues trending down, consider Prostat 1 pkt BID. 2.) Continue close supervision with meals. 3.) Refer to RD for further nutrition educ. and weight monitoring upon discharge. 4.) Continue current plan of care.
[2018-09-23] MEDS ORDERED: ALTEPLASE 2MG CATHFLO 10 MG in SODIUM CHLORIDE 0.9% 1,000 ML IV ONE (15:00)
--- NOTE | 2018-09-23 15:08 | NUR ---
PATIENT TRANSFERRED TO ICU VIA BED CONNECTED TO PORTABLE MONITOR. PATIENT IS ALERT AND ORIENTED. VENOUS SHEATH TO RIGHT GROIN ASSESSED WITH RUBBER CUTTING MACHINE TENDER NURSES. CALL LIGHT IN REACH, BED IN LOW POSITION. PATIENT INFORMED TO REMAIN FLAT AND NOT TO BED LEGS. PATIENT CONNECTED TO BEDSIDE MONITOR. WILL CONTINUE TO MONITOR.
[2018-09-23] MEDS ORDERED: ALTEPLASE 2MG CATHFLO 10 MG in SODIUM CHLORIDE 0.9% 1,000 ML IV SCH (15:15)
[2018-09-23] MEDS ORDERED: HEPARIN DRIP/D5W 100UNITS/ML 250 ML IV SCH (15:35)
[2018-09-23] MEDS: HEPARIN 1,000 UNITS/ml 1ML VIAL IV SCH ×9 (16:00→23:00)
--- NOTE | 2018-09-23 16:02 | NUR ---
SPOKE TO DR BAE TO CLAIRY ORDERS. PER MD FOLLOW ORDERS NOTED IN HIS DICTATION.
--- NOTE | 2018-09-23 16:30 | NUR ---
PATIENT PLACED ON NASAL CANULA PATIENT NOTED TO HAVE SATURATIONS OF 88%. ONCE OXYGEN PLACED AT 2 LITERS SATURATIONS WENT TO 98%. WILL CONTINUE TO MONITOR.
[2018-09-23 17:10] LABS: INR 1.2 (0.9-1.15); Partial Thromboplastin Time 42.7 sec (23.78-33.04); Prothrombin Time 12.7 sec (9.27-12.13)
[2018-09-23 17:16] LABS: Basophils # (auto) 0 uL; Basophils % (auto) 0.9 % (0.0-2.0); Eosinophils # (auto) 0.2 uL; Eosinophils % (auto) 4.2 % (0.0-7.0); Hematocrit 32.8 % (41.0-53.0); Hemoglobin 10.2 g/dL (13.5-17.5); Lymphocytes % (auto) 18.6 % (10.0-50.0); Mean Corpuscular Hemoglobin 27.6 pg (28.0-32.0); Mean Corpuscular Volume 88.9 fL (80.0-100.0); Monocytes # (auto) 0.6 uL; Monocytes % (auto) 10.7 % (0.0-12.0); Neutrophils # (auto) 3.7 uL; Neutrophils % (auto) 65.6 % (37.0-80.0); Platelet Count (auto) 311 10^3/uL (140-450); Red Blood Cells 3.69 10^6/uL (4.5-5.90); Red Cell Distribution Width 15.6 % (11.8-14.3); White Blood Cell 5.6 10^3/uL (4.4-10.8)
[2018-09-23] MEDS: OXYCODONE W/ ACETAMINOPHEN 5/325MG TABLET PO PRN (18:48)
--- NOTE | 2018-09-23 19:02 | NUR ---
PAGED MOISTURE TESTER HOSPITALIST ABOUT PATIENTS PAIN AWAITING CALL BACK. [address] GALAN ABOUT PATIENTS COMPLAINT OF PAIN AND CURRENT MEDICATIONS ORDERED. PER MD INCREASE FREQUENCY FROM Q4 HOURS TO Q3HR PRN FOR CURRENT DILAUDID ORDER. ORDERS NOTED IN CHART.
[2018-09-23] MEDS ORDERED: APIXABAN 5 MG TAB PO SCH (22:00)
[2018-09-23 23:06] LABS: INR 1.13 (0.9-1.15); Partial Thromboplastin Time 32.2 sec (23.78-33.04)
[2018-09-23 23:48] LABS: Basophils # (auto) 0 uL; Basophils % (auto) 0.5 % (0.0-2.0); Eosinophils # (auto) 0.1 uL; Eosinophils % (auto) 1.6 % (0.0-7.0); Hematocrit 32.1 % (41.0-53.0); Hemoglobin 10.3 g/dL (13.5-17.5); Lymphocytes # (auto) 1.1 uL; Lymphocytes % (auto) 23.8 % (10.0-50.0); Mean Corpuscular Hemoglobin 27.7 pg (28.0-32.0); Mean Corpuscular Volume 86.6 fL (80.0-100.0); Monocytes # (auto) 0.4 uL; Monocytes % (auto) 8.6 % (0.0-12.0); Neutrophils # (auto) 2.9 uL; Neutrophils % (auto) 65.5 % (37.0-80.0); Nucleated Red Blood Cells % 0.1 %; Platelet Count (auto) 286 10^3/uL (140-450); Red Cell Distribution Width 15.2 % (11.8-14.3); White Blood Cell 4.4 10^3/uL (4.4-10.8)
[2018-09-24] VITALS (61 sets, daily range): BP systolic 109–140; BP diastolic 50–93
[2018-09-24] MEDS ORDERED: ALTEPLASE 2MG CATHFLO 10 MG in SODIUM CHLORIDE 0.9% 1,000 ML IV SCH (01:15)
[2018-09-24] MEDS: HEPARIN 1,000 UNITS/ml 1ML VIAL IV SCH ×12 (01:20→11:00)
[2018-09-24] MEDS: HYDROmorphone HCL 2 MG/ML VL IV PRN ×7 (02:20→23:16)
[2018-09-24 04:05] LABS: Basophils # (auto) 0 uL; Basophils % (auto) 0.4 % (0.0-2.0); Eosinophils # (auto) 0.1 uL; Eosinophils % (auto) 1.4 % (0.0-7.0); Hematocrit 30.2 % (41.0-53.0); Hemoglobin 9.9 g/dL (13.5-17.5); Lymphocytes # (auto) 0.8 uL; Lymphocytes % (auto) 17.4 % (10.0-50.0); Mean Corpuscular Hemoglobin 28.2 pg (28.0-32.0); Mean Corpuscular Hgb Conc. 32.8 g/dL (32.0-36.0); Mean Corpuscular Volume 85.8 fL (80.0-100.0); Monocytes # (auto) 0.5 uL; Monocytes % (auto) 10.1 % (0.0-12.0); Neutrophils # (auto) 3.2 uL; Neutrophils % (auto) 70.7 % (37.0-80.0); Nucleated Red Blood Cells % 0.1 %; Platelet Count (auto) 238 10^3/uL (140-450); Red Blood Cells 3.52 10^6/uL (4.5-5.90); White Blood Cell 4.5 10^3/uL (4.4-10.8)
[2018-09-24] MEDS: OXYCODONE W/ ACETAMINOPHEN 5/325MG TABLET PO PRN ×4 (04:15→23:17)
[2018-09-24 04:20] LABS: Calcium 8.7 mg/dL (8.5-10.1); Potassium 3.5 mmol/L (3.5-5.1)
[2018-09-24 04:23] LABS: BUN/Creatinine Ratio 12.1
[2018-09-24 07:52] LABS: INR 1.27 (0.9-1.15); Partial Thromboplastin Time 34.5 sec (23.78-33.04); Prothrombin Time 13.4 sec (9.27-12.13)
--- NOTE | 2018-09-24 08:10 | NUR ---
CONTACT LAB REGARDING COAGULATION RESULTS SPOKE WITH DOC JANE. BUCK STATED "I JUST GOT HERE AT 0600 AND THE SAMPLE WAS RECEIVED AT 0700, I AM JUST RUNNING THE PT/PTT AND FIBRINOGEN". BUCK WAS REMINDED THAT ACCORDING TO INSIDE OUTSIDE SALES REPRESENTATIVE RN. BLOOD SAMPLE WAS COLLECTED AT 0330 AND THIS IS A TIMED LAB SO THE Q6H REPEAT OF CBC, FIBRINOGEN AND PT/PTT AT 0900 WILL NOT ORDERED DUE TO THE PENDING 0330 RESULTS. BUCK VERBALIZED UNDERSTANDING AND WILL PUT A WHITMAN ON THE RESULTS AND NOTIFY LAB TECHS. CHARGE NURSE AWARE.
[2018-09-24 08:46] LABS: Fibrinogen 118.5 mg/dL (177-375)
--- NOTE | 2018-09-24 08:58 | NUR ---
COMFORT/SITE BLEEDING/COAGULATION RESULTED/CHANGES MADE FAMILY AT BEDSIDE, PATIENT'S FATHER UPDATED ON PATIENT'S STATUS. PATIENT ALERT AND ORIENTED X4. PATIENT REPOSITIONED FOR COMFORT AND TO MAINTAIN SKIN INTEGRITY, PATIENT MEDICATED PRIOR TO REPOSITION ORDERED BY MD. NOTED RIGHT GROIN CATHETER SITE GAUZE SATURATED WITH BLOOD, NO BLEEDING OOZING OUT OF DRESSING, WILL CONTINUE TO MONITOR. COAGULATION VALUES AVAILABLE AT THIS TIME - PER DR BAE'S WRITTEN ORDERS, CURRENT FIBRINOGEN 118.5; WILL DECREASE TPA BY 50%, THEREFORE INFUSION RATE CHANGED TO 50 CC/HR. WILL HOLD 0900 HEPARIN BOL[address] AND NOTIFY DR BAE. MESSAGE LEFT FOR DR BAE TO UPDATE HIM ON CURRENT LABS AND PATIENT STATUS AND MEDICATION HELD.
--- NOTE | 2018-09-24 09:22 | NUR ---
RETURN CALL FROM DR CATALINO BAE VERBALIZED UNDERSTANDING ON CHANGES MADE, 0900 HEPARIN BOLUS HELD AND LABS. DR BAE ORDERED BOLUSES TO CONTINUE BUT AWARE THAT 0900 WAS NOT GIVEN AND WILL CONTINUE STARTING AT 1000. DR BAE AGREED ON DECREASING TPA PER HIS WRITTEN ORDER AND ORDERED NOTHING TO BE STOPPED UNTIL PATIENT IS TAKEN INTO PROCEDURE LATER THIS MORNING. ORDERS WILL BE CARRIED OUT. PATIENT NOTIFIED.
[2018-09-24] MEDS ORDERED: fentaNYL CITRATE 100 MCG/2 ML VL ONE (10:36)
[2018-09-24] MEDS ORDERED: LIDOCAINE 2%HCL (LOCAL ANESTH.) INJ 20ML MDV ONE (10:36)
[2018-09-24] MEDS ORDERED: MIDAZOLAM HCL 1MG/1ML-2 ML VIAL ONE (10:36)
--- NOTE | 2018-09-24 10:45 | NUR ---
HOSPITALIST AT BEDSIDE DR BARDALES UPDATED ON PATIENT'S STATUS, LABS, DRIPS AND RIGHT GROIN BLEEDING. NO ORDERS AT THIS TIME - ORDERS TO DISCUSS PAIN MANAGEMENT WITH DR BAE.
[2018-09-24] MEDS ORDERED: IOHEXOL 350 MG/ML 100ML IJ ONE ×2 (10:52→11:36)
--- NOTE | 2018-09-24 10:59 | NUR ---
PATIENT OFF FLOOR TO ONLINE MARKETING ANALYST PATIENT ALERT AND ORIENTED X4, NO DISTRESS NOTED, RESPIRATIONS EVEN AND UNLABORED, ON ROOM AIR. PATIENT MEDICATED FOR PAIN PRIOR TO TRANSFER TO ONLINE MARKETING ANALYST. FAMILY AT BEDSIDE. DRIPS CONTINUE ORDERED. 1100 HEPARIN BOLUS WILL NOT BE ADMINISTERED DUE TO PATIENT OUT OF ICU UNIT.
[2018-09-24] MEDS ORDERED: ANGIOMAX 250 MG VIAL IV ONE (11:44)
[2018-09-24] MEDS ORDERED: SODIUM CHL 0.9% 50 ML ONE (11:45)
[2018-09-24] MEDS ORDERED: HEPARIN SODIUM (PORCINE) 5000 UNITS/ML 1ML VIAL IV ONE (12:30)
[2018-09-24] MEDS ORDERED: HEPARIN DRIP/D5W 100UNITS/ML 250 ML IV SCH (12:30)
--- NOTE | 2018-09-24 12:39 | NUR ---
Patient taken to ICU room 101 via hospital bed, Report given to Charly HERNÁNDEZ, shown left groin, no bleeding, no hematoma. Patient vital signs WNL. Care endorsed to RN.
[2018-09-24 13:09] LABS: Basophils # (auto) 0 uL; Basophils % (auto) 0.3 % (0.0-2.0); Eosinophils # (auto) 0.1 uL; Eosinophils % (auto) 2.3 % (0.0-7.0); Hematocrit 31.3 % (41.0-53.0); Lymphocytes # (auto) 1.1 uL; Lymphocytes % (auto) 23.5 % (10.0-50.0); Mean Corpuscular Hemoglobin 27.7 pg (28.0-32.0); Mean Corpuscular Volume 86.6 fL (80.0-100.0); Monocytes # (auto) 0.5 uL; Neutrophils # (auto) 2.9 uL; Neutrophils % (auto) 62.9 % (37.0-80.0); Platelet Count (auto) 222 10^3/uL (140-450); Red Blood Cells 3.62 10^6/uL (4.5-5.90); Red Cell Distribution Width 15.6 % (11.8-14.3); White Blood Cell 4.6 10^3/uL (4.4-10.8)
[2018-09-24 13:28] LABS: INR 1.82 (0.9-1.15); Prothrombin Time 18.8 sec (9.27-12.13)
[2018-09-24 13:40] LABS: Partial Thromboplastin Time 73.2 sec (23.78-33.04)
--- NOTE | 2018-09-24 13:56 | NUR ---
CONTACT PHARMACY SPOKE WITH PHARMACISTS, UPDATED ON PATIENT'S STATUS AND DR BAE'S ORDERS. ONE TIME BOLUS OF 10,000 UNITS WILL BE ADMINISTERED ORDERED BY DR BAE AND WILL START HEPARIN ORDERED AND FOLLOW HEPARIN DVT PROTOCOL AND REPEAT PT/PTT IN 6 HOURS.
[2018-09-24] MEDS: HEPARIN DRIP/D5W 100UNITS/ML 250 ML IV SCH ×2 (14:19→18:37)
[2018-09-24] MEDS: SODIUM CHLORIDE 0.9% 1,000 ML IV SCH (14:45)
--- NOTE | 2018-09-24 17:30 | NUR ---
STATUS CHANGE/PAGED HOSPITALIST PATIENT REPORTED TO THIS NURSE THAT HE FELT "HEART PALPITATIONS". PATIENT HEART RATE LOW 100'S - GIRISH PERFORMED. FAMILY AT BEDSIDE. AWAITING RETURN CALL FROM HOSPITALIST.
--- NOTE | 2018-09-24 20:12 | NUR ---
PROVIDED PT. WITH INCENTIVE SPIROMETER AND PT. ABLE TO REACH 3000ML; PT. TO ATTEMPT OFTEN HE CAN WHILE AWAKE.
[2018-09-24] MEDS ORDERED: ALPR2TAB2 PO (20:38)
[2018-09-24] MEDS ORDERED: RISP0.5T12 PO (20:38)
[2018-09-24] MEDS ORDERED: HYD2I BC (20:38)
[2018-09-24] MEDS ORDERED: SENN1TAB14 PO (20:38)
[2018-09-24] MEDS ORDERED: ONDA4TAB5 PO (20:38)
[2018-09-24] MEDS ORDERED: NAPR375T27 PO (20:38)
--- NOTE | 2018-09-24 22:00 | NUR ---
PT. MEDICATED WITH PERCOCET AT 22:00 NOT 23:17; PLEASE DISREGARD 23:17 CHARTING FOR THIS MED.
[2018-09-24 22:27] LABS: INR 1.24 (0.9-1.15); Partial Thromboplastin Time 48.5 sec (23.78-33.04); Prothrombin Time 13.1 sec (9.27-12.13)
--- NOTE | 2018-09-24 23:00 | NUR ---
PTT= 48.50 AND INCREASED HEPARIN GTT BY 200 UNITS OR 2ML/HR-FROM 20ML TO 22ML/HR WITNESSED BY BETTY JACK-BIG 6 DEALER; WILL REPEAT COAGS AT 0500 AM PER PROTOCOL.
[2018-09-25] VITALS (24 sets, daily range): BP systolic 96–135; BP diastolic 48–69
[2018-09-25] MEDS: HYDROmorphone HCL 2 MG/ML VL IV PRN ×8 (01:57→23:45)
[2018-09-25 04:44] LABS: Calcium 8.4 mg/dL (8.5-10.1); Magnesium 2.1 mg/dL (1.6-2.6); Potassium 3.4 mmol/L (3.5-5.1)
[2018-09-25 04:47] LABS: BUN/Creatinine Ratio 10.9
[2018-09-25 05:13] LABS: INR 1.22 (0.9-1.15); Partial Thromboplastin Time 66.5 sec (23.78-33.04); Prothrombin Time 12.9 sec (9.27-12.13)
[2018-09-25] MEDS ORDERED: POTASSIUM CHL 20MEQ/100ML 100 ML IV ONE (06:30)
[2018-09-25] MEDS ORDERED: POTASSIUM CHL 20 Meq TABLET PO ONE (06:30)
--- NOTE | 2018-09-25 07:55 | NUR ---
STARTED NEW BAG OF HEPARIN 25,000 IN 250ML WITH A RATE OF 22ML/HR OR 2200 UNITS/HR; VERIFIED WITH BETTY FUENTES.
--- NOTE | 2018-09-25 08:45 | NUR ---
MD Dr. Quezada at bedside updated on patient condition with new orders, MD to input into system. MD spoke to patient and patients mother, whom is at bedside, regarding plan of care. Questions and concerns answered by MD.
--- NOTE | 2018-09-25 09:00 | NUR ---
HEPARIN GTT Heparin gtt increased to 2400 units = 24 ml for a PTT of 43.90. Will continue to monitor patient for any signs/symptoms of bleeding.
[2018-09-25 09:09] LABS: INR 1.18 (0.9-1.15); Partial Thromboplastin Time 43.9 sec (23.78-33.04); Prothrombin Time 12.5 sec (9.27-12.13)
--- NOTE | 2018-09-25 10:15 | NUR ---
ECHO laundry technician at bedside to obtain study.
[2018-09-25] MEDS: PANTOPRAZOLE 40 MG TAB PO SCH (10:39)
[2018-09-25] MEDS: SODIUM CHLORIDE 0.9% 1,000 ML IV SCH (10:41)
--- NOTE | 2018-09-25 10:45 | NUR ---
MD Dr. Hollingsworth at bedside updated on patient condition with no new orders received by MD. MD spoke to patient and patients mother, whom is at bedside, regarding plan of care, questions and concerns answered by MD.
[2018-09-25 15:49] LABS: INR 1.1 (0.9-1.15); Partial Thromboplastin Time 53.4 sec (23.78-33.04); Prothrombin Time 11.7 sec (9.27-12.13)
--- NOTE | 2018-09-25 17:00 | NUR ---
HEPARIN GTT Heparin gtt to continue current rate of 24ml = 2400 units for a PTT of 53.40 per heparin protocol.
[2018-09-25] MEDS: HEPARIN DRIP/D5W 100UNITS/ML 250 ML IV SCH ×2 (18:41→19:52)
--- NOTE | 2018-09-25 20:00 | NUR ---
Opening Shift Note Assumed care of patient at 1900hrs Patient is awake and alert. Complains of pain at left leg. will medicate as per EMAR. VS stable. Afebrile. Patient is on Heparin drip at 24ml/hr and IV NS at 60ml/hr. Refer interventions for full assessment. Instructed on POC and to call for assist PRN, will continue to monitor for changes Q1hr and PRN.
--- NOTE | 2018-09-25 21:00 | NUR ---
PAIN RE-ASSESS PATIENT RE-ASSESSED FOR PATIENT. PATIENT SAID THAT IT IS STILL PAINFUL ABOUT 5-11/21 ASKED IF HE WANTS TO TAKE PERCOCET DILAUDID WAS JUST GIVEN - HE WANTS TO WAIT 1 MORE HOUR TO SEE IF PAIN SUBSIDES
--- NOTE | 2018-09-25 22:00 | NUR ---
PAIN PATIENT IS STILL COMPLAINING OF PAIN AT LEFT LEG 01/21 IV DILAUDID STILL NOT DUE WILL GIVE PERCOCET
[2018-09-25] MEDS: OXYCODONE W/ ACETAMINOPHEN 5/325MG TABLET PO PRN (22:16)
[2018-09-25 22:41] LABS: INR 1.07 (0.9-1.15); Partial Thromboplastin Time 52.3 sec (23.78-33.04); Prothrombin Time 11.4 sec (9.27-12.13)
--- NOTE | 2018-09-25 23:00 | NUR ---
BETTY CARUSO ASSUMED CARE OF PATIENT
[2018-09-26] VITALS (28 sets, daily range): BP systolic 103–140; BP diastolic 52–76
[2018-09-26] MEDS: SODIUM CHLORIDE 0.9% 1,000 ML IV SCH ×2 (01:32→16:49)
[2018-09-26] MEDS: HYDROmorphone HCL 2 MG/ML VL IV PRN ×7 (02:39→23:13)
[2018-09-26 04:15] LABS: Basophils # (auto) 0 uL; Basophils % (auto) 0.6 % (0.0-2.0); Eosinophils # (auto) 0.2 uL; Eosinophils % (auto) 5.3 % (0.0-7.0); Hematocrit 28.3 % (41.0-53.0); Hemoglobin 9.3 g/dL (13.5-17.5); Lymphocytes # (auto) 1.5 uL; Lymphocytes % (auto) 40.1 % (10.0-50.0); Mean Corpuscular Hemoglobin 27.9 pg (28.0-32.0); Mean Corpuscular Hgb Conc. 32.9 g/dL (32.0-36.0); Mean Corpuscular Volume 84.8 fL (80.0-100.0); Monocytes # (auto) 0.4 uL; Monocytes % (auto) 11.5 % (0.0-12.0); Neutrophils # (auto) 1.6 uL; Neutrophils % (auto) 42.5 % (37.0-80.0); Nucleated Red Blood Cells % 0.1 %; Platelet Count (auto) 224 10^3/uL (140-450); Red Blood Cells 3.34 10^6/uL (4.5-5.90); Red Cell Distribution Width 15.5 % (11.8-14.3); White Blood Cell 3.7 10^3/uL (4.4-10.8)
[2018-09-26 04:35] LABS: Potassium 3.5 mmol/L (3.5-5.1)
[2018-09-26 04:40] LABS: Calcium 8.4 mg/dL (8.5-10.1)
--- NOTE | 2018-09-26 04:43 | NUR ---
HEPARIN GTT PTT 49.7 SECS INCREASED HEPARIN PER PROTOCOL Addendum: 09/26/18 at 0542 by Maureen Funk RN FROM 24 ML/HR TO 26ML/HR
[2018-09-26] MEDS: HEPARIN DRIP/D5W 100UNITS/ML 250 ML IV SCH ×3 (05:05→20:21)
--- NOTE | 2018-09-26 05:15 | NUR ---
OFFERED SPONGE BATH - PATIENT REFUSED, HE SAID MAYBE LATER
--- NOTE | 2018-09-26 05:17 | NUR ---
PATIENT ON AND OFF WAKES UP TO REPOSITION HIMSELF
--- NOTE | 2018-09-26 07:11 | NUR ---
SHIFT OPENING NOTE PATIENT AOX4, MOVING ALL EXTREMITIES, REPORTS PAIN IN LEFT LEG. PALPABLE PULSES IN BOTH LOWER EXTREMITIES. ABDOMEN SOFT AND NONTENDER, BLADDER SOFT AND NONDISTENDED, URINAL AT BEDSIDE. PLAN OF CARE DISCUSSED WITH PATIENT IN DETAIL. ALL QUESTIONS AND CONCERNS ADDRESSED AT THIS TIME.
--- NOTE | 2018-09-26 09:27 | NUR ---
FAMILY MOTHER AT BEDSIDE. UPDATED ON PATIENT STATUS. ALL QUESTIONS AND CONCERNS ADDRESSED AT THIS TIME
[2018-09-26] MEDS: PANTOPRAZOLE 40 MG TAB PO SCH (09:31)
[2018-09-26 11:45] LABS: INR 1.07 (0.9-1.15); Prothrombin Time 11.4 sec (9.27-12.13)
[2018-09-26] MEDS ORDERED: ceFAZolin 1GM/50ML 50 ML IV ONE (12:30)
--- NOTE | 2018-09-26 12:31 | NUR ---
DR. TIPTON AT BEDSIDE
[2018-09-26] MEDS ORDERED: KETOROLAC TROMETH 30 MG/ML 1ML VIAL IV PRN (13:15)
--- NOTE | 2018-09-26 14:35 | NUR ---
Nutrition Follow-up Notes Wt.: 124.4 kg Pt's sleeping with curtains closed with no family by bedside. per pt records pt with extensive DVT s/p thrombectomy. pt with no distress noted currently on regular diet with inadequate PO of 50% x 4 per RN doc Est. Needs: 2350 kcal to 2950 kcal (18-23 kcal/kgBW), 103 gms to 128 gms pro (0.8-1.0 gms/kgBW). Will continue to monitor pertinent labs and reassess nutrient need prn Labs: CA 8.4 L. rest lab wnl for today Skin: Lucho scale 18, mod risk, pt's left hip, left popliteal incision dry and intact per change control analyst. GI: Pt had 1 BM 09/22 per change control analyst. PES: Altered nutrition related lab values r/t current/chronic medical condition aeb low Cr and mod hypoalbuminemia Obesity r/t food intake more than body requirement aeb 142% IBW, BMI 33 kg/m2 and increased body adiposity Will continue to monitor PO intake, skin status, pertinent labs and weight trend. F/u in 3 to 5 days. Rec.: 1.) If Albumin level continues trending down, consider Prostat 1 pkt BID. 2.) Continue close supervision with meals. 3.) Refer to RD for further nutrition educ. and weight monitoring upon discharge. 4.) Continue current plan of care.
--- NOTE | 2018-09-26 17:39 | NUR ---
LINEN CHANGE PATIENT OFFERED LINEN CHANGE. PATIENT REFUSED AT THIS TIME STATING "MAYBE LATER".
[2018-09-26 17:53] LABS: INR 1.08 (0.9-1.15); Prothrombin Time 11.5 sec (9.27-12.13)
--- NOTE | 2018-09-26 19:00 | NUR ---
SCD PER DAY SHIFT BETTY MOYA, DR. TIPTON ORDERED SCD'S TO BOTH LEGS.
--- NOTE | 2018-09-26 19:09 | NUR ---
REPORT GIVEN TO YEFRI HERNÁNDEZ TO ASSUME CARE
[2018-09-26 19:20] LABS: Partial Thromboplastin Time 77.3 sec (23.78-33.04)
--- NOTE | 2018-09-26 19:20 | NUR ---
HEPARIN GTT/PTT CALLED LAB TO FOLLOW UP PTT RESULTS FOR HEPARIN GTT PTT 77.3 SECS DECREASED RATE TO 24ML/HR PER PROTOCOL RECHECK PTT AFTER 6HRS
--- NOTE | 2018-09-26 19:30 | NUR ---
Opening Shift Note Assumed care of patient, awake and alert. Talking a colleague and his friends. VS stable. will do assessment -refer interventions.On IV Heparin gtt now at 2400units/hr and IV NS at 60ml/hr. SCD's at both legs as ordered by Dr. Hartman. Pulses palpable at all limbs. Left leg remained edematous and painful. will medicate for pain as per EMAR. Instructed on POC and to call for assist PRN, will continue to monitor for changes Q1hr and PRN.
--- NOTE | 2018-09-26 21:00 | NUR ---
IV insertion IV access obtained, via clean sterile technique by inserting 20 gauge catheter at LEFT FA after 2 attempt(s). IV secured properly. No trauma to site. Patient tolerated well. NOTE: IV AT LEFT AC DC'D -IT WAS INSERTED 09/16
--- NOTE | 2018-09-26 21:46 | NUR ---
REPORT REPORT GIVEN TO BETTY RUFFIN
[2018-09-26] MEDS: ceFAZolin 1GM/50ML 50 ML IV SCH (21:48)
[2018-09-26] MEDS: APIXABAN 5 MG TAB PO SCH (21:49)
--- NOTE | 2018-09-26 22:20 | NUR ---
IV insertion IV access obtained, via clean sterile technique by inserting 20 gauge catheter at RIGHT FA after 1 attempt(s). IV secured properly. No trauma to site. Patient tolerated well. NOTE: PREVIOUS RIGHT FA IV SITE DC'D (INSERTED 09/20/18)
--- NOTE | 2018-09-26 22:30 | NUR ---
ICU patient trans to telemetry floor BULMARO JAMESON transferred to Room [facility] via bed on engine monitor. All patient medications and personal belongings transferred with patient to receiving floor. Patient care transferred to BETTY Khan. NOTE: Cellphone and salesperson furniture with patient, crutches x 2 send with patient
--- NOTE | 2018-09-26 22:35 | NUR ---
Received report from LOIN PULLER and assumed care of patient. Patient on Heparin drip at 24ml /hr. PT PTT to be drawn at 0120. Patient having pain in his L lower leg. Pain scale 8/10. Will medicate patient and will continue to monitor.
--- NOTE | 2018-09-27 01:20 | NUR ---
Called Lab for timed PT PTT to be drawn.
--- NOTE | 2018-09-27 01:45 | NUR ---
APTT result is 78.30. Heparin dose decreased to 22 ML /Hr. PT PTT to be drawn at 0720 HR. Will give report to incoming RN for follow up.
[2018-09-27] MEDS: HYDROmorphone HCL 2 MG/ML VL IV PRN ×7 (02:07→22:04)
[2018-09-27 02:36] LABS: INR 1.12 (0.9-1.15); Prothrombin Time 11.9 sec (9.27-12.13)
[2018-09-27 02:39] LABS: Partial Thromboplastin Time 78.3 sec (23.78-33.04)
[2018-09-27] MEDS: DOCUSATE SOD 100 MG CAP PO PRN ×2 (05:07→22:04)
--- NOTE | 2018-09-27 05:10 | NUR ---
Patient requesting SCD machine removed .
[2018-09-27] MEDS: HEPARIN DRIP/D5W 100UNITS/ML 250 ML IV SCH (05:58)
[2018-09-27 06:03] VITALS: BP 99/62
[2018-09-27] MEDS: ceFAZolin 1GM/50ML 50 ML IV SCH ×3 (06:07→22:04)
--- NOTE | 2018-09-27 06:30 | NUR ---
Patient denies pain at this time. Patient sleepy and requesting SCD machine off.Will give report to incoming RN.
--- NOTE | 2018-09-27 07:20 | NUR ---
OPENING NOTE ASSUMED CARE OF PT. A&O X4. ON ROOM AIR, O2 SATURATION 94%, NO SIGNS OF SOB/DISTRESS NOTED. TELE #35, SR @ 88 BPM. SAFETY PRECAUTIONS IN PLACE INCLUDING BED SET TO LOWEST POSITION/LOCKED, BEDSIDE RAILS UP X2, CALL LIGHT WITHIN REACH. INSTRUCTED PT TO CALL FOR ASSISTANCE. DISCUSSED POC WITH PT. PT VERBALIZED UNDERSTANDING. WILL CONTINUE TO MONITOR Q 1HR AND PRN.
[2018-09-27 08:37] LABS: INR 1.06 (0.9-1.15); Partial Thromboplastin Time 53.4 sec (23.78-33.04); Prothrombin Time 11.3 sec (9.27-12.13)
[2018-09-27] MEDS: APIXABAN 5 MG TAB PO SCH ×2 (08:46→21:12)
[2018-09-27] MEDS: PANTOPRAZOLE 40 MG TAB PO SCH (08:46)
[2018-09-27 09:00] VITALS: BP 110/64
[2018-09-27] MEDS: SODIUM CHLORIDE 0.9% 1,000 ML IV SCH ×2 (09:25→11:15)
--- NOTE | 2018-09-27 11:50 | NUR ---
HEPARIN DRIP PER JIGNA FROM [facility]ARM[facility] [place] TO DISCHARGE HEPARIN DRIP PER DR. LEE ORDERS.
[2018-09-27] MEDS ORDERED: OXYCODONE W/ ACETAMINOPHEN 5/325MG TABLET PO PRN (12:30)
[2018-09-27 13:00] VITALS: BP 99/57
[2018-09-27 17:00] VITALS: BP 111/64
--- NOTE | 2018-09-27 19:15 | NUR ---
Opening Shift Note Received report from BETTY Leal and assumed care of patient, awake and alert. Patient expressed relief of pain in his L lower leg. Instructed patient to call for assist if needed and verbalized understanding. Will continue to monitor .
--- NOTE | 2018-09-27 19:16 | NUR ---
ENDORSED CARE TO BETTY RUFFIN.
[2018-09-27 22:00] VITALS: BP 120/63
[2018-09-28] MEDS: HYDROmorphone HCL 2 MG/ML VL IV PRN ×5 (01:05→15:00)
--- NOTE | 2018-09-28 04:10 | NUR ---
SCD machine applied to bilateral legs per patient request.
[2018-09-28 05:00] VITALS: BP 124/67
[2018-09-28] MEDS: ceFAZolin 1GM/50ML 50 ML IV SCH ×2 (06:13→15:00)
--- NOTE | 2018-09-28 07:45 | NUR ---
Opening Shift Note Assumed care of patient, awake and alert. SCD's on bilateral extremities intact. Reports pain 8/10 sharp, no-radiating pain to the left leg. Provided with prescribed analgesic, and education on pain management. HOB 45 degrees, side-rails upx2 for safety, call light on hand, instructed on POC and to call for assist PRN, will continue to monitor for changes Q1hr and PRN.
[2018-09-28 08:36] VITALS: BP 104/71
[2018-09-28] MEDS: APIXABAN 5 MG TAB PO SCH (10:20)
[2018-09-28] MEDS: PANTOPRAZOLE 40 MG TAB PO SCH (10:20)
[2018-09-28 13:00] VITALS: BP 108/72
[2018-09-28 15:00] VITALS: BP 108/72
--- NOTE | 2018-09-28 16:38 | NUR ---
Discharge instructions given as ordered. Encourage to follow up with PMD as instructed. All questions and concerns addressed. Patient verbalized understanding. Medication reconciliation form completed and copy given to patient. IV removed with catheter intact, pressure dressing applied. Telemetry unit returned to ICU. Patient taken to vehicle via wheelchair with all personal belongings and prescriptions, accompanied by staff and family member. No distress noted at time of departure.
[2018-10-03] MEDS ORDERED: APIXABAN 5 MG TAB PO SCH (22:00)
== END 2018-09-28 16:30 | disposition home or self-care (01) | DRG 270 ==
LOC: ER 11:41 → EEVIPCON 11:41 → TELE-CENTR 12:53 → ICU WEST 09-23 15:03 → TELE-WESTW 09-26 22:35
PROVIDERS: ADMIT Internal Medicine; ATTEND Internal Medicine
PROC: 3E03317 Introduction of Other Thrombolytic into Peripheral Vein, Percutaneous Approach (ICD-10-PCS; principal; 2018-09-23)
PROC: 06CN3ZZ Extirpation of Matter from Left Femoral Vein, Percutaneous Approach (ICD-10-PCS; 2018-09-23)
PROC: 06CY3ZZ Extirpation of Matter from Lower Vein, Percutaneous Approach (ICD-10-PCS; 2018-09-23)
PROC: 067N3ZZ Dilation of Left Femoral Vein, Percutaneous Approach (ICD-10-PCS; 2018-09-23)
PROC: B51C1ZZ Fluoroscopy of Left Lower Extremity Veins using Low Osmolar Contrast (ICD-10-PCS; 2018-09-23)
PROC: 067N3ZZ Dilation of Left Femoral Vein, Percutaneous Approach (ICD-10-PCS; 2018-09-27)
PROC: 067Y3ZZ Dilation of Lower Vein, Percutaneous Approach (ICD-10-PCS; 2018-09-27)
PROC: 3E03317 Introduction of Other Thrombolytic into Peripheral Vein, Percutaneous Approach (ICD-10-PCS; 2018-09-27)
DX: I82.412 Acute embolism and thrombosis of left femoral vein (principal); I26.99 Other pulmonary embolism without acute cor pulmonale; E66.9 Obesity, unspecified; D64.9 Anemia, unspecified; I82.439 Acute embolism and thrombosis of unspecified popliteal vein; K80.20 Calculus of gallbladder without cholecystitis without obstruction; Z79.01 Long term (current) use of anticoagulants; Z68.33 Body mass index [BMI] 33.0-33.9, adult; Z88.2 Allergy status to sulfonamides; Z68.32 Body mass index [BMI] 32.0-32.9, adult
CPT/HCPCS: 36415; 71275; 75625; 75820; 76000; 76937; 76942; 80048; 80053; 81001; 83735; 85025; 85384; 85610; 85730; 87081; 93005; 93306; 93971; 96372; 96374; 96375; 99152; A6257; C1757; C1769; G0378; J0690; J1885; J2250; J2405; J3480

== ENCOUNTER → 2018-10-18 | Outpatient (CLI) | payer BC ==
[~2018-10-18] MED LIST changes: +ALPR2TAB2 PO; +HYD2I BC; -IBUP800T24 PO; +NAPR375T27 PO; +ONDA4TAB5 PO; +RISP0.5T12 PO; +SENN1TAB14 PO
[2018-10-18 11:21] LABS: Basophils # (auto) 0 uL; Basophils % (auto) 0.6 % (0.0-2.0); Eosinophils # (auto) 0.1 uL; Hematocrit 38.8 % (41.0-53.0); Hemoglobin 12.7 g/dL (13.5-17.5); Lymphocytes # (auto) 1.6 uL; Lymphocytes % (auto) 49.2 % (10.0-50.0); Mean Corpuscular Hemoglobin 27.2 pg (28.0-32.0); Mean Corpuscular Hgb Conc. 32.7 g/dL (32.0-36.0); Monocytes # (auto) 0.3 uL; Monocytes % (auto) 7.8 % (0.0-12.0); Neutrophils # (auto) 1.3 uL; Neutrophils % (auto) 39.4 % (37.0-80.0); Platelet Count (auto) 247 10^3/uL (140-450); Red Blood Cells 4.68 10^6/uL (4.5-5.90); Red Cell Distribution Width 15.6 % (11.8-14.3); White Blood Cell 3.3 10^3/uL (4.4-10.8)
[2018-10-18 11:27] LABS: Partial Thromboplastin Time 28.2 sec (23.78-33.04); Prothrombin Time 10.7 sec (9.27-12.13)
[2018-10-18 12:25] LABS: Albumin 3.9 g/dL (3.4-5.0); Calcium 9.7 mg/dL (8.5-10.1)
[2018-10-18 12:33] LABS: BUN/Creatinine Ratio 13.6; Bilirubin, Total 0.5 mg/dL (0.2-1.0); Total Protein 8.4 g/dL (6.4-8.2)
== END | disposition home or self-care (01) ==
LOC: LAB 10:29
PROVIDERS: ATTEND Internal Medicine
DX: Z01.810 Encounter for preprocedural cardiovascular examination (principal)
CPT/HCPCS: 36415; 80053; 80061; 83036; 83540; 83735; 85025; 85610; 85730

== ENCOUNTER → 2019-11-07 | Outpatient (CLI) | payer OTHER ==
[~2019-11-07] MED LIST changes: +ONDA-144 PO; -ONDA4TAB5 PO
== END | disposition home or self-care (01) ==
LOC: LAB 10:14
PROVIDERS: ATTEND Nurse Practitioner Family
DX: Z03.818 Encounter for observation for suspected exposure to other biological agents ruled out (principal); Z20.828 Contact with and (suspected) exposure to other viral communicable diseases

== ENCOUNTER → 2019-12-22 | Outpatient (CLI) | payer OTHER | END | disposition home or self-care (01) | LOC: LAB 08:08 | PROVIDERS: ATTEND Nurse Practitioner Family | DX: U07.1 COVID-19 (principal) | CPT/HCPCS: 87635 ==

== ENCOUNTER → 2019-12-25 | Emergency (ER) | payer BC, OTHER ==
[~2019-12-25] VITALS: Ht 182.9 cm; Wt 131.5 kg
[~2019-12-25] MED LIST changes: +hydrOXYchloroQUINE SULFATE 200 MG TAB PO ONE; +methylPREDNISolone SOD SUCC 125 MG/2 ML VL IV ONE
[2019-12-25 21:19] VITALS: BP 120/82
[2019-12-25 21:32] LABS: Basophils # (auto) 0 10 ^3/uL (0-0.2); Basophils % (auto) 0.8 % (0.0-2.0); Eosinophils # (auto) 0 10 ^3/uL (0-0.8); Hematocrit 45.7 % (41.0-53.0); Hemoglobin 15.2 g/dL (13.5-17.5); Lymphocytes # (auto) 0.7 10 ^3/uL (0.4-5.4); Lymphocytes % (auto) 33.5 % (10.0-50.0); Mean Corpuscular Hemoglobin 29.8 pg (28.0-32.0); Mean Corpuscular Hgb Conc. 33.3 g/dL (32.0-36.0); Mean Corpuscular Volume 89.7 fL (80.0-100.0); Monocytes # (auto) 0.2 10 ^3/uL (0-1.3); Monocytes % (auto) 7.3 % (0.0-12.0); Neutrophils # (auto) 1.2 10 ^3/uL (1.6-8.6); Neutrophils % (auto) 58.4 % (37.0-80.0); Nucleated Red Blood Cells % 0.5 %; Platelet Count (auto) 134 10^3/uL (140-450); Red Cell Distribution Width 13.4 % (11.8-14.3); White Blood Cell 2.1 10^3/uL (4.4-10.8)
[2019-12-25 21:50] LABS: Albumin 3.4 g/dL (3.4-5.0); Calcium 8.3 mg/dL (8.5-10.1); Magnesium 2.8 mg/dL (1.6-2.6); Potassium 4.2 mmol/L (3.5-5.1)
[2019-12-25 21:58] LABS: BUN/Creatinine Ratio 14.1; Bilirubin, Total 0.3 mg/dL (0.2-1.0); CRP High Sensitivity 3.86 mg/dL (< 0.3)
== END | disposition home or self-care (01) ==
LOC: EEVIPCON 20:24 → ER 20:26
DX: J18.8 Other pneumonia, unspecified organism (principal); J01.00 Acute maxillary sinusitis, unspecified; R50.9 Fever, unspecified; Z20.828 Contact with and (suspected) exposure to other viral communicable diseases; Z88.2 Allergy status to sulfonamides; Z79.899 Other long term (current) drug therapy
CPT/HCPCS: 36415; 71045; 80053; 82728; 83605; 83615; 83735; 84443; 85025; 85379; 86141; 96374; 99284; J2930